=== PATIENT | male | born 1975 | race Caucasian/White ===

== ENCOUNTER → 2020-09-27 13:29 | Outpatient (CLI) | payer BC, SELFPAY ==
[2020-09-27 15:13] LABS: Absolute Lymphocyte Count 1.48 X10^3/uL (0.83-4.51); Basophil# 0.04 X10^3/uL; Basophil% 0.7 % (0-1); Eosinophil# 0.26 X10^3/uL; Eosinophils% 4.8 % (0-5); Hematocrit 46.9 % (40-54); Hemoglobin 16.4 g/dL (13.0-16.5); Lymphocyte # 1.48 X10^3/ul (4.0); Lymphocyte % 27.6 % (19-41); Mean Corpuscular Hgb 33.6 pg (27.0-32.0); Mean Corpuscular Volume 96.1 fL (80-94); Monocyte# 0.58 X10^3/uL; Monocyte% 10.8 % (0-10); NRBC Flagged by Analyzer 0 % (0-5); Neutrophil # 2.99 X10^3/uL (2.7-7.7); Neutrophil % 55.7 % (47-70); Platelet Count 293 K/mm3 (150-450); RBC Distribution Width CV 12.3 % (11.6-14.6); RBC Distribution Width SD 43.8 fl (35.1-43.9); Red Blood Count 4.88 M/mm3 (4.6-6.2); White Blood Count 5.4 K/mm3 (4.4-11.0)
[2020-09-27 16:00] LABS: ALB/GLOB Ratio 1.2 RATIO (0.9-2.4); AST(SGOT) 29 U/L (15-37); Alanine Aminotransfer ALT/SGPT 31 U/L (16-61); Albumin, Serum 4.4 g/dL (3.2-5.0); Alkaline Phosphatase 84 U/L (45-117); Anion Gap 8 (5-15); BUN 3 mg/dL (7-18); BUN/Creat Ratio 4.3 RATIO (10-20); Calcium,Total 9.1 mg/dL (8.5-10.1); Chloride 103 mmol/L (98-107); Cholesterol 171 mg/dL (200); EST Glomerular Filtration Rate 131 mL/min (>60); Est Glom Filt Rate - Afr Amer 158 mL/min (>60); Globulin 3.7 g/dL (2.2-4.2); Glucose 137 mg/dL (74-106); High Density Lipoprotein 49 mg/dL; Protein, Total 8.1 g/dL (6.4-8.2); Sodium Level 139 mmol/L (136-145); T4 Free Direct 0.99 ng/dL (0.76-1.46); Thyroid Stim Hormone (TSH) 0.91 uIU/mL (0.358-3.74); Triglycerides 169 mg/dL; Very Low Density Lipoprotein 34 mg/dL (5-40)
== END ==
PROVIDERS: PCP Family Medicine; Visit Provider Family Medicine
DX: E11.9 Type 2 diabetes mellitus without complications (principal); E78.5 Hyperlipidemia, unspecified; F41.8 Other specified anxiety disorders
CPT/HCPCS: 36415; 80053; 80061; 84439; 84443; 85025

== ENCOUNTER → 2023-03-04 | Outpatient (CLI) | payer OTHER, SELFPAY ==
[2023-03-04 12:48] LABS: Absolute Lymphocyte Count 1.47 X10^3/uL (0.83-4.51); Absolute Neutrophil Count 3.6 X10^3/uL (2.0-7.7); Basophil# 0.07 X10^3/uL; Basophil% 1.2 % (0-1); Eosinophil# 0.27 X10^3/uL; Eosinophils% 4.5 % (0-5); Hematocrit 45.6 % (40-54); Hemoglobin 15.6 g/dL (13.0-16.5); Lymphocyte # 1.47 X10^3/ul (0.83-4.51); Lymphocyte % 24.5 % (19-41); Mean Corp Hgb Conc 34.2 g/dL (32-36); Mean Corpuscular Hgb 34.1 pg (27.0-32.0); Mean Corpuscular Volume 99.6 fL (80-94); Mean Platelet Vol. 9.9 fl (6.2-12.0); Monocyte# 0.53 X10^3/uL; Monocyte% 8.8 % (0-10); NRBC Flagged by Analyzer 0 % (0-5); Neutrophil # 3.63 X10^3/uL (2.7-7.7); Neutrophil % 60.5 % (47-70); Platelet Count 298 K/mm3 (150-450); RBC Distribution Width CV 12.4 % (11.6-14.6); RBC Distribution Width SD 45.1 fl (35.1-43.9); Red Blood Count 4.58 M/mm3 (4.6-6.2)
[2023-03-04 13:20] LABS: AST(SGOT) 41 U/L (15-37); Alanine Aminotransfer ALT/SGPT 42 U/L (16-61); Albumin, Serum 3.6 g/dL (3.2-5.0); Alkaline Phosphatase 88 U/L (45-117); Anion Gap 4 (5-15); BUN 4 mg/dL (7-18); BUN/Creat Ratio 5.1 RATIO (10-20); Calcium,Total 8.7 mg/dL (8.5-10.1); Chloride 102 mmol/L (98-107); Cholesterol 145 mg/dL (200); Creatinine, Serum 0.78 mg/dL (0.70-1.30); EST Glomerular Filtration Rate 113 mL/min (>60); Est Glom Filt Rate - Afr Amer 136 mL/min (>60); Globulin 3.7 g/dL (2.2-4.2); Glucose 168 mg/dL (74-106); High Density Lipoprotein 33 mg/dL; PSA,Total - Annual Screen 0.52 ng/mL (0.00-4.00); Potassium 4.5 mmol/L (3.5-5.1); Protein, Total 7.3 g/dL (6.4-8.2); Sodium Level 136 mmol/L (136-145); Triglycerides 251 mg/dL; Very Low Density Lipoprotein 50 mg/dL (5-40)
== END | disposition home or self-care (01) ==
PROVIDERS: PCP Nurse Practitioner Family; Referring Provider Nurse Practitioner Family; Visit Provider Nurse Practitioner Family
DX: E11.9 Type 2 diabetes mellitus without complications (principal); I10 Essential (primary) hypertension; E78.5 Hyperlipidemia, unspecified
CPT/HCPCS: 36415; 80053; 80061; 82043; 82570; 84153; 85025; G0103

== ENCOUNTER → 2024-11-03 | Outpatient (CLI) | payer BC, SELFPAY ==
[2024-11-03 12:27] LABS: Absolute Lymphocyte Count 1.96 X10^3/uL (0.83-4.51); Absolute Neutrophil Count 5.1 X10^3/uL (2.0-7.7); Basophil# 0.07 X10^3/uL; Basophil% 0.9 % (0-1); Eosinophil# 0.21 X10^3/uL; Eosinophils% 2.6 % (0-5); Hematocrit 42.8 % (40-54); Lymphocyte # 1.96 X10^3/ul (0.83-4.51); Lymphocyte % 24.5 % (19-41); Mean Corpuscular Hgb 32.1 pg (27.0-32.0); Mean Corpuscular Volume 91.5 fL (80-94); Monocyte# 0.61 X10^3/uL; Monocyte% 7.6 % (0-10); NRBC Flagged by Analyzer 0 % (0-5); Neutrophil # 5.11 X10^3/uL (2.7-7.7); Platelet Count 278 K/mm3 (150-450); RBC Distribution Width CV 12.6 % (11.6-14.6); RBC Distribution Width SD 41.6 fl (35.1-43.9); Red Blood Count 4.68 M/mm3 (4.6-6.2)
[2024-11-03 13:50] LABS: Microalbumin,Random Urine 66.6 mg/L (NO RANGE EST.)
[2024-11-03 14:47] LABS: ALB/GLOB Ratio 1.5 RATIO (0.9-2.4); AST(SGOT) 52 U/L (<=37); Alanine Aminotransfer ALT/SGPT 53 U/L (<=46); Albumin, Serum 4.5 g/dL (3.5-5.0); Alkaline Phosphatase 102 U/L (40-129); Anion Gap 12 (5-15); BUN 7 mg/dL (4-19); BUN/Creat Ratio 9.8 RATIO (10-20); Calcium,Total 9.3 mg/dL (7.6-11.0); Carbon Dioxide 22.8 mmol/L (21.0-32.0); Chloride 101 mmol/L (98-108); Cholesterol 115 mg/dL (<=200); Creatinine, Serum 0.71 mg/dL (0.70-1.20); EST Glomerular Filtration Rate 113 (>60); Glucose 180 mg/dL (70-99); High Density Lipoprotein 43 mg/dL; Low Density Lipoprotein Calc. 37 mg/dL; PSA,Total - Annual Screen 0.31 ng/mL (0.02-4.00); Potassium 4.4 mmol/L (3.3-5.1); Protein, Total 7.5 g/dL (5.9-8.4); Sodium Level 136 mmol/L (133-145); Total Bilirubin 0.53 mg/dL (0.00-1.30); Triglycerides 173 mg/dL; Very Low Density Lipoprotein 35 mg/dL (5-40); cholesterol:hdl ratio screen 2.67
== END | disposition home or self-care (01) ==
LOC: BFHLAB 09:58
PROVIDERS: PCP Nurse Practitioner Family; Visit Provider Nurse Practitioner Family
DX: Z00.01 Encounter for general adult medical examination with abnormal findings (principal); E11.29 Type 2 diabetes mellitus with other diabetic kidney complication; R80.9 Proteinuria, unspecified; Z12.5 Encounter for screening for malignant neoplasm of prostate
CPT/HCPCS: 36415; 80053; 80061; 82043; 82570; 84153; 85025; G0103

== ENCOUNTER 2025-03-22 22:05 | Emergency (ER) | payer BC, SELFPAY ==
[2025-03-22 22:08] VITALS: BP 171/101; PULSE 74; RESP 16; TEMP 37.1; O2SAT 100; BMI 37.5
[2025-03-22 22:16] VITALS: O2SAT 97
--- NOTE | 2025-03-22 22:16 | EKG12_ITS ---
Test Reason : CP Blood Pressure : */* mmHG Vent. Rate : 69 BPM Atrial Rate : 69 BPM P-R Int : 158 ms QRS Dur : 98 ms QT Int : 416 ms P-R-T Axes : 46 -13 15 degrees QTcB Int : 445 ms Normal sinus rhythm Normal ECG Confirmed by TRAVIS GLASS ([id number]), magazine editor CHENG DURAN ([id number]) on 03/23/2025 1:49:34 PM Referred By: BB Confirmed By: TRAVIS GLASS
[2025-03-22] MEDS: 0.9% Normal Saline (1000mL) 1,000 ML 999 ML IV (22:30)
[2025-03-22 22:43] LABS: Hematocrit 41.0 % (40-54); Hemoglobin 14.6 g/dL (13.0-16.5); Immature Granulocytes Count 0.030 X10^3/uL (0.0-0.0); Mean Corp Hgb Conc 35.6 g/dL (32-36); Mean Corpuscular Volume 91.5 fL (80-94); Mean Platelet Vol. 9.4 fl (6.2-12.0); NRBC Flagged by Analyzer 0 % (0-5); Platelet Count 228 K/mm3 (150-450); RBC Distribution Width CV 11.8 % (11.6-14.6); RBC Distribution Width SD 39.5 fl (35.1-43.9); Red Blood Count 4.48 M/mm3 (4.6-6.2); White Blood Count 7.3 K/mm3 (4.4-11.0)
--- NOTE | 2025-03-22 22:43 | RAD_ITS ---
PROCEDURE: CHEST PA AND LATERAL 03/22/2025 REASON FOR EXAM: CHEST PAIN TECHNIQUE: CHEST PA AND LATERAL FINDINGS: The heart is normal in size. The lungs are clear. No acute osseous abnormalities. RAD/Chest PA and Lateral IMPRESSION: NO ACUTE FINDINGS. Reading Location: [id number]
--- OUTSIDE RECORDS SUMMARY | 2025-03-22 22:44 | XMS RPT_ITS | CCD ---
Author Organization [facility] Informat ion Partnership [facility] Care Team Providers Care Ebay Reseller Name Role Phone Georges TEMPERATURE REGULATOR PYROMETER-C, Sabrina Primary Care Provider Georges TEMPERATURE REGULATOR PYROMETEREulaC, Sabrina Attending Provider Sabrina Su Attending Unavailable Sabrina Su Primary Care Unavailable Results Test Name Value Interpretation Reference Range Facility Microalb:Creat Ratio,Random URon 01-13-2025 MALB:CREAT 60.0 mg/g CRE Normal [facility] Comment on above: Result Comment: AMENDED REPORT 01/13/25 1052 MALB:CREAT previously reported as: 600.0 mg/g CRE Performed By: #### L 500.4100, L500.4050, L501.9910, L502.0250, L100.0100 #### [facility] [place], [place], [id number] Absolute neutrophil countOrd ered By: Sabrina Su on 11-03-2024 Neutrophils (Bld) [#/Vol] 5.1 10*3/uL 2.0-7.7 [facility] Albumin DL <= 20 mg/L (U) [M ass/Vol]Ordered By: Sabrina Su on 11-03-2024 Urine Random Microalbumin 66.6 mg/L NO RANGE E [facility] Anion gap in Serum or Plasma Ordered By: Sabrina Su on 11-03-2024 Anion gap [Moles/Vol] 12 mmol/L 5-[address] [facility] BUN/creatinine ratioOrdered By: Sabrina Su on 11-03-2024 Urea nitrogen/Creatinine [Mass ratio] 9.8 mg/mg Low 10-20 [facility] Basophil percentageOrdered B y: Sabrina Su on 11-03-2024 Basophils/100 WBC (Bld) 0.9 % 0-1 [facility] Bilirubin, totalOrdered By: Sabrina Su on 11-03-2024 Bilirubin [Mass/Vol] 0.53 mg/dL 0.00-1.30 [facility] CBC W/Diff, Automatedon 04-0 Absolute Lymph 1.96 X10 3/uL Normal 0.83-4.51 [facility] Comment on above: Performed By: #### L 500.4100, L500.4050, L501.9910, L502.0250, L100.0100 #### [facility] [address] [place], [address] Absolute Neut 5.1 X10 3/uL Normal 2.0-7.7 [facility] Comment on above: Performed By: #### L 500.4100, L500.4050, L501.9910, L502.0250, L100.0100 #### [facility] [address] [place], [address] Basophils/100 WBC (Bld) 0.9 % Normal 0-1 [facility] Comment on above: Performed By: #### L 500.4100, L500.4050, L501.9910, L502.0250, L100.0100 #### [facility] [address] [place], [address] Eosinophils/100 WBC (Bld) 2.6 % Normal 0-5 [facility] Comment on above: Performed By: #### L 500.4100, L500.4050, L501.9910, L502.0250, L100.0100 #### [facility] [address] [place], [address] Erythrocyte distribution width (RBC) [Ratio] 12.6 % Normal 11.6-14.6 [facility] Comment on above: Performed By: #### L 500.4100, L500.4050, L501.9910, L502.0250, L100.0100 #### [facility] [address] [place], [address] Hematocrit (Bld) [Volume fraction] 42.8 % Normal 40-54 [facility] Comment on above: Performed By: #### L 500.4100, L500.4050, L501.9910, L502.0250, L100.0100 #### [facility] [address] [place], [address] Hemoglobin (Bld) [Mass/Vol] 15.0 g/dL Normal 13.0-16.5 [facility] Comment on above: Performed By: #### L 500.4100, L500.4050, L501.9910, L502.0250, L100.0100 #### [facility] [address] [place], [address] IG% 0.400 Normal 0.0-0.9 [facility] Comment on above: Result Comment: IG% - Immature Granulocytes (promyelocytes, myelocytes and metamyelocytes) > 1% indicates that a LEFT SHIFT is Present. Performed By: #### L 500.4100, L500.4050, L501.9910, L502.0250, L100.0100 #### [facility] [address] [place], [address] Lymphocytes/100 WBC (Bld) 24.5 % Normal 19-41 [facility] Comment on above: Performed By: #### L 500.4100, L500.4050, L501.9910, L502.0250, L100.0100 #### [facility] [address] [place], [address] MCH (RBC) [Entitic mass] 32.1 pg High 27.0-32.0 [facility] Comment on above: Performed By: #### L 500.4100, L500.4050, L501.9910, L502.0250, L100.0100 #### [facility] [address] [place] [place], [address] MCHC (RBC) [Mass/Vol] 35.0 g/dL Normal 32-[address] [facility] Comment on above: Performed By: #### L 500.4100, L500.4050, L501.9910, L502.0250, L100.0100 #### [facility] [address] [place], [address] MCV (RBC) [Entitic vol] 91.5 fL Normal 80-94 [facility] Comment on above: Performed By: #### L 500.4100, L500.4050, L501.9910, L502.0250, L100.0100 #### [facility] [address] [place], [address] Monocytes/100 WBC (Bld) 7.6 % Normal 0-10 [facility] Comment on above: Performed By: #### L 500.4100, L500.4050, L501.9910, L502.0250, L100.0100 #### [facility] [address] [place], [address] Neutrophils/100 WBC (Bld) 64.0 % Normal 47-70 [facility] Comment on above: Performed By: #### L 500.4100, L500.4050, L501.9910, L502.0250, L100.0100 #### [facility] [address] [place], [address] Nucleated RBC (Bld) [#/Vol] 0 10*3/uL Normal 0-5 [facility] Comment on above: Performed By: #### L 500.4100, L500.4050, L501.9910, L502.0250, L100.0100 #### [facility] [address] [place], [address] Platelet mean volume (Bld) [Entitic vol] 10.0 fL Normal 6.2-12.0 [facility] Comment on above: Performed By: #### L 500.4100, L500.4050, L501.9910, L502.0250, L100.0100 #### [facility] [address] [place], [address] Platelets (Bld) [#/Vol] 278 10*3/uL Normal 150-450 [facility] Comment on above: Performed By: #### L 500.4100, L500.4050, L501.9910, L502.0250, L100.0100 #### [facility] [address] [place], [address] RBC (Bld) [#/Vol] 4.68 10*6/uL Normal 4.6-6.2 [facility] Comment on above: Performed By: #### L 500.4100, L500.4050, L501.9910, L502.0250, L100.0100 #### [facility] [address] [place], [address] RDW SD 41.6 fl Normal 35.1-43.9 [facility] Comment on above: Performed By: #### L 500.4100, L500.4050, L501.9910, L502.0250, L100.0100 #### [facility] [address] [place], [address] WBC (Bld) [#/Vol] 8.0 10*3/uL Normal 4.4-11.0 [facility] Comment on above: Performed By: #### L 500.4100, L500.4050, L501.9910, L502.0250, L100.0100 #### [facility] [address] [place], [address] Calculated very low density lipoprotein (VLDL) cholesterol measurementOrdered By: Sabrina Su on 11-03-2024 VLDL Cholesterol 35 mg/dL 5-40 [facility] Carbon dioxide, total [Moles /volume] in Central venous bloodOrdered By: Sabrina Su on 11-03-2024 CO2 [Moles/Vol] 22.8 mmol/L 21.0-32.0 [facility] Chloride assayOrdered By: Ra maria de jesus Su on 11-03-2024 Chloride [Moles/Vol] 101 mmol/L 98-108 [facility] Comprehensive Metabolic Prof ilon 11-03-2024 Albumin [Mass/Vol] 4.5 g/dL Normal 3.5-5.0 [facility] Comment on above: Performed By: #### L 500.4100, L500.4050, L501.9910, L502.0250, L100.0100 #### [facility] [address] [facility] [place], [address] Albumin/Globulin [Mass ratio] 1.5 {ratio} Normal 0.9-2.4 [facility] Comment on above: Performed By: #### L 500.4100, L500.4050, L501.9910, L502.0250, L100.0100 #### [facility] [address] [place], [address] ALK PHOS 102 U/L Normal 40-129 [facility] Comment on above: Performed By: #### L 500.4100, L500.4050, L501.9910, L502.0250, L100.0100 #### [facility] [address] [place], [address] ALT [Catalytic activity/Vol] 53 U/L High <=46 [facility] Comment on above: Performed By: #### L 500.4100, L500.4050, L501.9910, L502.0250, L100.0100 #### [facility] [address] [place], [address] AST [Catalytic activity/Vol] 52 U/L High <=37 [facility] Comment on above: Performed By: #### L 500.4100, L500.4050, L501.9910, L502.0250, L100.0100 #### [facility] [address] [place], [address] Bilirubin [Mass/Vol] 0.53 mg/dL Normal 0.00-1.30 [facility] Comment on above: Performed By: #### L 500.4100, L500.4050, L501.9910, L502.0250, L100.0100 #### [facility] [address] [place], [address] BUN/CRE 9.8 RATIO Low 10-20 [facility] Comment on above: Performed By: #### L 500.4100, L500.4050, L501.9910, L502.0250, L100.0100 #### [facility] [address] [place], [address] Calcium [Mass/Vol] 9.3 mg/dL Normal 7.6-11.0 [facility] Comment on above: Performed By: #### L 500.4100, L500.4050, L501.9910, L502.0250, L100.0100 #### [facility] [address] [place], [address] Chloride [Moles/Vol] 101 mmol/L Normal 98-108 [facility] Comment on above: Performed By: #### L 500.4100, L500.4050, L501.9910, L502.0250, L100.0100 #### [facility] [address] [place], [address] CO2 [Moles/Vol] 22.8 mmol/L Normal 21.0-32.0 [facility] Comment on above: Performed By: #### L 500.4100, L500.4050, L501.9910, L502.0250, L100.0100 #### [facility] [address] [place], [address] Creatinine [Mass/Vol] 0.71 mg/dL Normal 0.70-1.[address] [facility] Comment on above: Performed By: #### L 500.4100, L500.4050, L501.9910, L502.0250, L100.0100 #### [facility] [address] [place], [address] GAP 12 Normal 5-15 [facility] Comment on above: Performed By: #### L 500.4100, L500.4050, L501.9910, L502.0250, L100.0100 #### [facility] [address] [place], [address] GFR/1.73 sq M.predicted among non-blacks MDRD (S/P/Bld) [Vol rate/Area] 113 mL/min/{1.73_m2} Normal >60 [facility] Comment on above: Result Comment: mL/m in/1.73m2 CKD-EPI Creatinine Equation (2020) Performed By: #### L 500.4100, L500.4050, L501.9910, L502.0250, L100.0100 #### [facility] [address] [place], [address] Globulin (S) [Mass/Vol] 3.0 g/dL Normal 2.2-4.2 [facility] Comment on above: Performed By: #### L 500.4100, L500.4050, L501.9910, L502.0250, L100.0100 #### [facility] [address] [place], [address] Glucose [Mass/Vol] 180 mg/dL High 70-99 [facility] Comment on above: Performed By: #### L 500.4100, L500.4050, L501.9910, L502.0250, L100.0100 #### [facility] [address] [place], [address] Potassium [Moles/Vol] 4.4 mmol/L Normal 3.3-5.[address] [facility] Comment on above: Performed By: #### L 500.4100, L500.4050, L501.9910, L502.0250, L100.0100 #### [facility] [address] [place], [address] Sodium [Moles/Vol] 136 mmol/L Normal 133-145 [facility] Comment on above: Performed By: #### L 500.4100, L500.4050, L501.9910, L502.0250, L100.0100 #### [facility] [address] [place], [address] T PROT 7.5 g/dL Normal 5.9-8.4 [facility] Comment on above: Performed By: #### L 500.4100, L500.4050, L501.9910, L502.0250, L100.0100 #### [facility] [address] [place], [address] Urea nitrogen [Mass/Vol] 7 mg/dL Normal 4-19 [facility] Comment on above: Performed By: #### L 500.4100, L500.4050, L501.9910, L502.0250, L100.0100 #### [facility] [address] [place], [address] Creatinine Unsp time (U) [Ma ss/Vol]Ordered By: Sabrina Su on 11-03-2024 Creatinine (U) [Mass/Vol] 111.00 mg/dL 39.00-25 9.00 [facility] Eosinophil percentageOrdered By: Baldwin Georges on 11-03-2024 Eosinophils/100 WBC (Bld) 2.6 % 0-5 [facility] Erythrocyte distribution wid th (RBC) [Ratio]Ordered By: Sabrinadeanne Su on 11-03-2024 Erythrocyte distribution width (RBC) [Entitic vol] 41.6 fL 35.1-43.9 [facility] Erythrocyte distribution wid th ratioOrdered By: Baldwin Georges on 11-03-2024 Erythrocyte distribution width (RBC) [Ratio] 12.6 % 11.6-14.6 [facility] GFR/1.73 sq M.predicted lynn g non-blacks MDRD (S/P/Bld) [Vol rate/Area]Ordered By: Sabrinadeanne Su on 11-03-2024 Estimated GFR (MDRD) Non-Af Amer 113 >60 [facility] Comment on above: mL/min/1.73m2 CKD-EP I Creatinine Equation (2020) Hematocrit Auto (Bld) [Volum e fraction]Ordered By: Sabrina Su on 11-03-2024 Hematocrit (Bld) [Volume fraction] 42.8 % 40-54 [facility] Hemoglobin measurementOrdere d By: Sabrina Su on 11-03-2024 Hemoglobin (Bld) [Mass/Vol] 15.0 g/dL 13.0-16.5 [facility] Immature granulocytes/100 WB C Auto (Bld)Ordered By: Sabrina Su on 11-03-2024 Immature granulocytes/100 WBC (Bld) 0.400 % 0.0-0.9 [facility] Comment on above: IG% - Immature Granu locytes (promyelocytes, myelocytes and metamyelocytes) > 1% indicates that a LEFT SHIFT is Present. LDL calc ser/plasOrdered By: Sabrina Su on 11-03-2024 LDL Cholesterol, Calculated 37 mg/dL [facility] Comment on above: Goqqjwwvbi=869-750 m g/dL & Higher Zdkg=801 mg/dL or greater Laboratory - Chemistry and C hemistry - challengeOrdered By: Sabrina Su on 11-03-2024 AST [Catalytic activity/Vol] 52 U/L High <38 [facility] Lipid Profileon 11-03-2024 CHOL:HDL 2.67 Normal [facility] Comment on above: Performed By: #### L 500.4100, L500.4050, L501.9910, L502.0250, L100.0100 #### [facility] [address] [place], [address] Cholesterol [Mass/Vol] 115 mg/dL Normal <=200 [facility] Comment on above: Result Comment: Chol esterol level, Desirable <200 mg/dL Borderline high cholesterol 200-239 mg/dL High cholesterol >=240 mg/dL Recommendations of the NCEP Adult Treatment Panel for the following risk-cutoff thresholds for the [place] population. Performed By: #### L 500.4100, L500.4050, L501.9910, L502.0250, L100.0100 #### [facility] [address] [place], [address] Cholesterol in HDL [Mass/Vol] 43 mg/dL Normal [facility] Comment on above: Result Comment: [place]ette onal Cholesterol Education Program (NCEP) guidelines: <40 mg/dL: Low HDL-cholesterol (major risk factor for CHD) >= 60 mg/dL: High HDL-cholesterol (negative risk factor for CHD) HDL-cholesterol is affected by a number of factors, e.g. smoking, exercise, hormones, sex and age. Performed By: #### L 500.4100, L500.4050, L501.9910, L502.0250, L100.0100 #### [facility] [address] [place], [address] Cholesterol in LDL [Mass/Vol] 37 mg/dL Normal [facility] Comment on above: Result Comment: Bord gowqri=480-397 mg/dL Higher Gkvn=681 mg/dL or greater Performed By: #### L 500.4100, L500.4050, L501.9910, L502.0250, L100.0100 #### [facility] [address] [place], [address] Cholesterol in VLDL [Mass/Vol] 35 mg/dL Normal 5-40 [facility] Comment on above: Performed By: #### L 500.4100, L500.4050, L501.9910, L502.0250, L100.0100 #### [facility] [address] [place], [address] Triglyceride [Mass/Vol] 173 mg/dL Normal [facility] Comment on above: Result Comment: The drugs N-Acetylcysteine and Metamizole may falsely depress this assay. Normal range: <150 mg/dL Borderline High: 150-199 mg/dL High: 200-499 mg/dL Very High: >500 mg/dL Performed By: #### L 500.4100, L500.4050, L501.9910, L502.0250, L100.0100 #### [facility] [address] [place], [place], [address] Lymphocytes Auto (Unsp spec) [#/Vol]Ordered By: Sabrina Su on 11-03-2024 Lymphocytes (Bld) [#/Vol] 1.96 10*3/uL 0.83-4.5 1 [facility] Lymphocytes/100 WBC Auto (Un sp spec)Ordered By: Sabrina Su on 11-03-2024 Lymphocytes/100 WBC (Bld) 24.5 % 19-41 [facility] MCV (mean corpuscular volume ) determinationOrdered By: Sabrina Su on 11-03-2024 MCV (RBC) [Entitic vol] 91.5 fL 80-94 [facility] Mean corpuscular hemoglobin (MCH) determinationOrdered By: Sabrina Su on 11-03-2024 MCH (RBC) [Entitic mass] 32.1 pg High 27.0-32.0 [facility] Mean corpuscular hemoglobin concentration (MCHC) determinationOrdered By: Sabrina Su on 11-03-2024 MCHC (RBC) [Mass/Vol] 35.0 g/dL 32-[address] [facility] Mean platelet volume determi nationOrdered By: Sabrina Su on 11-03-2024 Platelet mean volume (Bld) [Entitic vol] 10.0 fL 6.2-12.0 [facility] Microalbumin/creat ratio urO rdered By: Sabrina Su on 11-03-2024 Urine Microalbumin/Creatinine Ratio 600.0 mg/g CRE [facility] Monocyte percentageOrdered B y: Sabrina Tagar on 11-03-2024 Monocytes/100 WBC (Bld) 7.6 % 0-10 [facility] Neutrophil percentageOrdered By: Sabrina Georges on 11-03-2024 Neutrophils/100 WBC (Bld) 64.0 % 47-70 [facility] Nucleated red blood cell per centageOrdered By: Sabrina Georges on 11-03-2024 Nucleated RBC/100 WBC (Bld) [Ratio] 0 % 0-5 [facility] PSA, total screeningOrdered By: Sabrina Georges on 11-03-2024 Prostate Specific Antigen Screen 0.31 ng/mL 0.02-4.00 [facility] Comment on above: This test was perfor med using the [employer] tPSA method. Measured values of a patient sample can vary depending on the testing procedure used. PSA values determined on patient samples by different testing procedures cannot be used interchangeably. If there is a change in PSA assays while monitoring therapy, sequential testing should be performed to confirm baseline values. PSA,Total - Annual Screenon 11-03-2024 PSA,TOT SCREEN 0.31 ng/mL Normal 0.02-4.00 [facility] Comment on above: Result Comment: This test was performed using the [employer] tPSA method. Measured values of a patient??sample can vary depending on the testing procedure used. PSA values determined on patient samples by different testing procedures cannot be used interchangeably. If there is a change in PSA assays while monitoring therapy, sequential testing should be performed to confirm baseline values. Performed By: #### L 500.4100, L500.4050, L501.9910, L502.0250, L100.0100 #### [facility] [address] [place], [address] Platelet countOrdered By: Ra maria de jesus Su on 11-03-2024 Platelets (Bld) [#/Vol] 278 10*3/uL 150-450 [facility] Potassium (Unsp spec) [Mass/ Vol]Ordered By: Sabrina Su on 11-03-2024 Potassium [Moles/Vol] 4.4 mmol/L 3.3-5.[address] [facility] RBC Auto (Bld) [#/Vol]Ordere d By: Sabrina Su on 11-03-2024 RBC (Bld) [#/Vol] 4.68 10*6/uL 4.6-6.2 [facility] Screening total cholesterol/ high density lipoprotein (HDL) cholesterol ratioOrdered By: Sabrina Su on 11-03-2024 Cholesterol.total/Cholest les in HDL [Mass ratio] 2.67 {ratio} [facility] Serum creatinine measurement (mass/volume)Ordered By: Sabrina Su on 11-03-2024 Creatinine [Mass/Vol] 0.71 mg/dL 0.70-1.[address] [facility] Serum globulin measurementOr dered By: Sabrina Su on 11-03-2024 Globulin (S) [Mass/Vol] 3.0 g/dL 2.2-4.2 [facility] Serum glucose measurement (m ass/volume)Ordered By: Sabrina Su on 11-03-2024 Glucose [Mass/Vol] 180 mg/dL High 70-99 [facility] Serum or plasma alanine barker otransferase (ALT) measurementOrdered By: Sabrina Su on 11-03-2024 ALT [Catalytic activity/Vol] 53 U/L High <47 [facility] Serum or plasma albumin maryann urement (mass/volume)Ordered By: Sabrina Su on 11-03-2024 Albumin [Mass/Vol] 4.5 g/dL 3.5-5.0 [facility] Serum or plasma albumin/glob ulin mass ratioOrdered By: Sabrina Su on 11-03-2024 Albumin/Globulin [Mass ratio] 1.5 {ratio} 0.9-2.4 [facility] Serum or plasma alkaline pelon sphatase measurementOrdered By: Sabrina Su 11-03-2024 ALP [Catalytic activity/Vol] 102 U/L 40-129 [facility] Serum or plasma calcium maryann urement (mass/volume)Ordered By: Sabrina Su on 11-03-2024 Calcium [Mass/Vol] 9.3 mg/dL 7.6-11.0 [facility] Serum or plasma cholesterol in HDL measurement (mass/volume)Ordered By: Sabrina Su on 11-03-2024 Cholesterol in HDL [Mass/Vol] 43 mg/dL >40 [facility] Comment on above: National Cholesterol Education Program (NCEP) guidelines:<40 mg/dL: Low HDL-cholesterol (major risk factor for CHD)>= 60 mg/dL: High HDL-cholesterol (negative risk factor for CHD)HDL-cholesterol is affected by a number of factors, e.g. smoking, exercise, hormones, sex and age. Serum or plasma cholesterol measurement (mass/volume)Ordered By: Sabrina Su on 11-03-2024 Cholesterol [Mass/Vol] 115 mg/dL <201 [facility] Comment on above: Cholesterol level, D esirable <200 mg/dLBorderline high cholesterol 200-239 mg/dLHigh cholesterol >=240 mg/dLRecommendations of the NCEP Adult Treatment Panel for the following risk-cutoff thresholds for the [place] population. Serum or plasma urea nitroge n measurement (mass/volume)Ordered By: Sabrina Su on 11-03-2024 Urea nitrogen [Mass/Vol] 7 mg/dL 4-19 [facility] Sodium levelOrdered By: Macrina Su on 11-03-2024 Sodium [Moles/Vol] 136 mmol/L 133-145 [facility] Total proteinOrdered By: Rhina Su on 11-03-2024 Protein [Mass/Vol] 7.5 g/dL 5.9-8.4 [facility] Triglycerides measurementOrd ered By: Sabrina Su on 11-03-2024 Triglyceride [Mass/Vol] 173 mg/dL <199 [facility] Comment on above: The drugs N-Acetylcy steine and Metamizole may falsely depress this assay. Normal range: <150 mg/dLBorderline High: 150-199 mg/dLHigh: 200-499 mg/dLVery High: >500 mg/dL White blood cell (WBC) count Ordered By: Sabrina Su on 11-03-2024 WBC (Bld) [#/Vol] 8.0 10*3/uL 4.4-11.0 [facility] Absolute lymphocyte countOrd ered By: Sabrina Su on 03-04-2023 Lymphocytes Auto (Unsp spec) [#/Vol] 1.47 10*3/uL 0.83-4.51 [facility] Basophil percentageOrdered B y: Sabrina Su on 03-04-2023 Basophils/100 WBC (Bld) 1.2 % 0-1 [facility] Bilirubin [Mass/Vol] 0.60 mg/dL 0.20-1.00 [facility] Comment on above: For patients on eltr ombopag therapy, use of Dimension [place] TBIL is not recommended. Chloride [Moles/Vol] 102 mmol/L 98-107 [facility] Cholesterol [Mass/Vol] 145 mg/dL <200 [facility] Comment on above: <200 mg/dL Desirable 200-240 mg/dL Borderline >240 mg/dL High Risk Eosinophils/100 WBC (Bld) 4.5 % 0-5 [facility] Glucose [Mass/Vol] 168 mg/dL 74-106 [facility] Comment on above: Fasting Glucose resu lt greater than or equal to 126 mg/dL suggests DIABETES MELLITUS per A.D.A. criteria. Neutrophils (Bld) [#/Vol] 3.6 10*3/uL 2.0-7.7 [facility] Neutrophils/100 WBC (Bld) 60.5 % 47-70 [facility] Potassium [Moles/Vol] 4.5 mmol/L 3.5-5.[address] [facility] Protein [Mass/Vol] 7.3 g/dL 6.4-8.2 [facility] Sodium [Moles/Vol] 136 mmol/L 136-145 [facility] Triglyceride [Mass/Vol] 251 mg/dL <199 [facility] Comment on above: The drugs N-Acetylcy steine and Metamizole may falsely depress this assay.Serum Triglycerides Reference Interval Normal <150 mg/dL Borderline high 150 - 199 mg/dL High 200 - 499 mg/dL Very High > or = 500 mg/dL WBC (Bld) [#/Vol] 6.0 10*3/uL 4.4-11.0 [facility] Blood erythrocytes count (nu mber/volume)Ordered By: Sabrina Su on 03-04-2023 RBC (Bld) [#/Vol] 4.58 10*6/uL 4.6-6.2 [facility] Blood hemoglobin measurement (mass/volume)Ordered By: Sabrina Su on 03-04-2023 Hemoglobin (Bld) [Mass/Vol] 15.6 g/dL 13.0-16.5 [facility] Blood lymphocytes/100 leukoc ytesOrdered By: Sabrinadeanne Su on 03-04-2023 Lymphocytes/100 WBC (Bld) 24.5 % 19-41 [facility] Blood monocytes/100 leukocyt esOrdered By: Sabrinadeanne Su on 03-04-2023 Monocytes/100 WBC (Bld) 8.8 % 0-10 [facility] Blood platelet mean volumeOr dered By: Sabrina Su on 03-04-2023 Platelet mean volume (Bld) [Entitic vol] 9.9 fL 6.2-12.0 [facility] Determination of erythrocyte mean corpuscular volume (MCV)Ordered By: Sabrinadeanne Su on 03-04-2023 MCV (RBC) [Entitic vol] 99.6 fL 80-94 [facility] Hematocrit Auto (Bld) [Volum e fraction]Ordered By: Sabrinadeanne Su on 03-04-2023 Hematocrit (Bld) [Volume fraction] 45.6 % 40-54 [facility] - Chemistry and C hemistry - challengeOrdered By: Sabrina Su on 03-04-2023 ALP [Catalytic activity/Vol] 88 U/L 45-117 [facility] ALT [Catalytic activity/Vol] 42 U/L 16-61 [facility] CO2 [Moles/Vol] 30.0 mmol/L 21.0-32.0 [facility] Globulin (S) [Mass/Vol] 3.7 g/dL 2.2-4.2 [facility] Urea nitrogen/Creatinine [Mass ratio] 5.1 mg/mg 10-20 [facility] - Hematology and Cell countsOrdered By: Sabrina Su on 03-04-2023 Erythrocyte distribution width (RBC) [Entitic vol] 45.1 fL 35.1-43.9 [facility] Erythrocyte distribution width (RBC) [Ratio] 12.4 % 11.6-14.6 [facility] Immature granulocytes/100 WBC (Bld) 0.500 % 0.0-0.9 [facility] Comment on above: IG% - Immature Granu locytes (promyelocytes, myelocytes and metamyelocytes) > 1% indicates that a LEFT SHIFT is Present. MCH (RBC) [Entitic mass] 34.1 pg 27.0-32.0 [facility] Nucleated RBC/100 WBC (Bld) [Ratio] 0 % 0-5 [facility] MCHC Auto (RBC) [Mass/Vol]Or dered By: Sabrina Su on 03-04-2023 MCHC (RBC) [Mass/Vol] 34.2 g/dL 32-[address] [facility] No Panel InformationOrdered By: Sabrina Su on 03-04-2023 Estimated GFR (MDRD) Amer 136 mL/min >60 [facility] Comment on above: GFR Calc Estimated GFR (MDRD) Non-Af Amer 113 mL/min >60 [facility] Comment on above: Non- GFR Calc Prostate Specific Antigen Screen 0.52 ng/mL 0.00-4.00 [facility] Comment on above: This test was perfor med using the TPSA assay method [facility]. Values obtained with differentassay methods cannot be used interchangably.When changing PSA assays in the course of monitoring apatient, additional sequential testing should be carriedout to confirm baseline values. Urine Microalbumin/Creatinine Ratio 48.0 mg/g CRE <30 [facility] Platelets bldOrdered By: Rhina Su on 03-04-2023 Platelets (Bld) [#/Vol] 298 10*3/uL 150-450 [facility] Serum or plasma albumin maryann urement (mass/volume)Ordered By: Sabrina Su on 03-04-2023 Albumin [Mass/Vol] 3.6 g/dL 3.2-5.0 [facility] Serum or plasma albumin/glob ulin mass ratioOrdered By: Sabrina Su on 03-04-2023 Albumin/Globulin [Mass ratio] 1.0 {ratio} 0.9-2.4 [facility] Serum or plasma calcium maryann urement (mass/volume)Ordered By: Sabrina Su on 03-04-2023 Calcium [Mass/Vol] 8.7 mg/dL 8.5-10.1 [facility] Serum or plasma cholesterol in HDL measurement (mass/volume)Ordered By: Sabrina Su on 03-04-2023 Cholesterol in HDL [Mass/Vol] 33 mg/dL >40 [facility] Comment on above: The drugs N-Acetylcy steine and Metamizole may falsely depress this assay. Reference Range HDL <40 mg/dL Low HDL Cholesterol HDL >or= 60 mg/dL High HDL Cholesterol Serum or plasma cholesterol in VLDL measurement (mass/volume)Ordered By: Sabrina Su on 03-04-2023 Cholesterol in VLDL [Mass/Vol] 50 mg/dL 5-40 [facility] Serum or plasma creatinine m easurement (mass/volume)Ordered By: Sabrina Su on 03-04-2023 Creatinine [Mass/Vol] 0.78 mg/dL 0.70-1.[address] [facility] Comment on above: The validity of the calculated GFR & GFRAA in patients over 70 years has not been determined. Clinical correlation is essential. Serum or plasma low density lipoprotein (LDL) cholesterol measurement (mass/volume)Ordered By: Sabrina uS on 03-04-2023 Cholesterol in LDL [Mass/Vol] 62 mg/dL 0-130 [facility] Serum or plasma urea nitroge n measurement (mass/volume)Ordered By: Sabrina Su on 03-04-2023 Urea nitrogen [Mass/Vol] 4 mg/dL 7-18 [facility] Thin prep Papanicolaou smear with manual screeningOrdered By: Sabrina Su on 03-04-2023 Thin prep Papanicolaou smear with manual screening 41 U/L 15-37 [facility] Thin prep Papanicolaou smear with manual screening 4 5-15 [facility] Thin prep Papanicolaou smear with manual screening 17.0 mg/L NO RANGE EST. [facility] Urine creatinine measurement (mass/volume)Ordered By: Sabrina Su on 03-04-2023 Creatinine (U) [Mass/Vol] 35.40 mg/dL NO RANGE EST. [facility] 06-04-2019 Vit. D 25-Hydroxy 38 ng/mL Normal [facility] ([place]) Comment on above: Result Comment: Inte rpretive Values Based on Total 25(OH)D: Severe Deficiency <20 ng/mL Mild to Moderate Deficiency 20-30 ng/mL Optimum Levels 30-100 ng/mL Toxicity Possible >100 ng/mL Performed By: #### C BC, ADIFF, ANEU, A1C, GFR, TSH, CMP #### [address] [address] .Auto Diffon 06-03-2019 Ammonia (P) [Mass/Vol] 0.60 10 3/mcL Normal 0.09-1.40 [facility] ([place]) Comment on above: Performed By: #### C BC, ADIFF, ANEU, A1C, GFR, TSH, CMP #### [address] [address] Basophils (Bld) [#/Vol] 0.00 10 3/mcL Normal 0.00-0.27 [facility] ([place]) Comment on above: Performed By: #### C BC, ADIFF, ANEU, A1C, GFR, TSH, CMP #### [address] [address] Basophils/100 WBC (Bld) 0.7 % Normal 0.0-2.5 [facility] ([place]) Comment on above: Performed By: #### C BC, ADIFF, ANEU, A1C, GFR, TSH, CMP #### [address] [address] Eosinophils (Bld) [#/Vol] 0.10 10 3/mcL Normal 0.00-0. 65 [facility] ([place] Comment on above: Performed By: #### C BC, ADIFF, ANEU, A1C, GFR, TSH, CMP #### [address] [address] Eosinophils/100 WBC (Bld) 1.7 % Normal 0.0-6.0 [facility] ([place] Comment on above: Performed By: #### C BC, ADIFF, ANEU, A1C, GFR, TSH, CMP #### [address] [address] Lymphocytes (Bld) [#/Vol] 1.60 10 3/mcL Normal 0.90-4. 32 [facility] ([place]) Comment on above: Performed By: #### C BC, ADIFF, ANEU, A1C, GFR, TSH, CMP #### [address] [address] Lymphocytes/100 WBC (Bld) 22.3 % Normal 20.0-40.0 [facility] ([place]) Comment on above: Performed By: #### C BC, ADIFF, ANEU, A1C, GFR, TSH, CMP #### [address] [address] Monocytes/100 WBC (Bld) 8.4 % Normal 2.0-13.0 [facility] ([place]) Comment on above: Performed By: #### C BC, ADIFF, ANEU, A1C, GFR, TSH, CMP #### [address] [address] Neutrophils/100 WBC (Bld) 66.9 % Normal 50.0-75.0 [facility] ([place]) Comment on above: Performed By: #### C BC, ADIFF, ANEU, A1C, GFR, TSH, CMP #### [address] [address] .GFRon 06-03-2019 GFR Non- >60 Normal [facility] ([place]) Comment on above: Result Comment: GFR Population mean for , Non- Americans Ages 20-29 = 116 mL/min/1.73 sq.m. Ages 30-39 = 107 mL/min/1.73 sq.m. Ages 40-49 = 99 mL/min/1.73 sq.m. Ages 50-59 = 93 mL/min/1.73 sq.m. Ages 60-69 = 85 mL/min/1.73 sq.m. Ages 70+ = 75 mL/min/1.73 sq.m. Chronic Kidney Disease: Less than 60 mL/min/1.73 square meters End Stage Renal Disease: Less than 15 mL/min/1.73 square meters Performed By: #### C BC, ADIFF, ANEU, A1C, GFR, TSH, CMP #### [address] [address] GFR >60 Normal [facility] ([place]) Comment on above: Result Comment: GFR Population mean for , Non- Americans Ages 20-29 = 116 mL/min/1.73 sq.m. Ages 30-39 = 107 mL/min/1.73 sq.m. Ages 40-49 = 99 mL/min/1.73 sq.m. Ages 50-59 = 93 mL/min/1.73 sq.m. Ages 60-69 = 85 mL/min/1.73 sq.m. Ages 70+ = 75 mL/min/1.73 sq.m. Chronic Kidney Disease: Less than 60 mL/min/1.73 square meters End Stage Renal Disease: Less than 15 mL/min/1.73 square meters Performed By: #### C BC, ADIFF, ANEU, A1C, GFR, TSH, CMP #### [place] [address] .NEUABSon 06-03-2019 Neutrophils (Bld) [#/Vol] 4.80 10 3/mcL Normal 2.25-8. 10 [facility] ([place] Comment on above: Performed By: #### C BC, ADIFF, ANEU, A1C, GFR, TSH, CMP #### [place] [address] A1Con 06-03-2019 HbA1c (Bld) [Mass fraction] 6.3 % High 4.0-6.0 [facility] ([place]) Comment on above: Performed By: #### C BC, ADIFF, ANEU, A1C, GFR, TSH, CMP #### [place] [address] CBCon 06-03-2019 Erythrocyte distribution width (RBC) [Ratio] 14.2 % Normal 11.5-15.5 [facility] ([place]) Comment on above: Performed By: #### C BC, ADIFF, ANEU, A1C, GFR, TSH, CMP #### [place] [address] Hematocrit (Bld) [Volume fraction] 48.9 % Normal 40.0-52.0 [facility] ([place] Comment on above: Performed By: #### C BC, ADIFF, ANEU, A1C, GFR, TSH, CMP #### [place] [id number] Hemoglobin (Bld) [Mass/Vol] 16.6 G/dL Normal 13.0-17.5 [facility] ([place] Comment on above: Performed By: #### C BC, ADIFF, ANEU, A1C, GFR, TSH, CMP #### [place] [id number] MCH (RBC) [Entitic mass] 33.0 pg Normal 27.0-33.0 [facility] ([place]) Comment on above: Performed By: #### C BC, ADIFF, ANEU, A1C, GFR, TSH, CMP #### [place] [id number] MCHC (RBC) [Mass/Vol] 34.0 G/dL Normal 32.0-36.0 [facility] ([place]) Comment on above: Performed By: #### C BC, ADIFF, ANEU, A1C, GFR, TSH, CMP #### [place] [id number] MCV (RBC) [Entitic vol] 97.1 fL Normal 81.0-100.0 [facility] ([place]) Comment on above: Performed By: #### C BC, ADIFF, ANEU, A1C, GFR, TSH, CMP #### [place] [id number] Platelet mean volume (Bld) [Entitic vol] 8.4 fL Normal 6.4-10.5 [facility] ([place] Comment on above: Performed By: #### C BC, ADIFF, ANEU, A1C, GFR, TSH, CMP #### [place] [id number] Platelets (Bld) [#/Vol] 315 10 3/mcL Normal 150-450 [facility] ([place] Comment on above: Performed By: #### C BC, ADIFF, ANEU, A1C, GFR, TSH, CMP #### [address] [address] RBC (Bld) [#/Vol] 5.04 10 6/mcL Normal 4.50-6.00 [facility] ([place]) Comment on above: Performed By: #### C BC, ADIFF, ANEU, A1C, GFR, TSH, CMP #### [place] [id number] WBC (Bld) [#/Vol] 7.10 10 3/mcL Normal 4.50-10.80 [facility] ([place] Comment on above: Performed By: #### C BC, ADIFF, ANEU, A1C, GFR, TSH, CMP #### [place] [address] CMPon 06-03-2019 Albumin/Globulin [Mass ratio] 1.4 {ratio} Normal 0.9-1.6 [facility] ([place]) Comment on above: Performed By: #### C BC, ADIFF, ANEU, A1C, GFR, TSH, CMP #### [place] [address] ALP [Catalytic activity/Vol] 75 U/L Normal 38-126 [facility] ([place] Comment on above: Performed By: #### C BC, ADIFF, ANEU, A1C, GFR, TSH, CMP #### [place] [id number] ALT [Catalytic activity/Vol] 19 U/L Normal 12-55 [facility] ([place] Comment on above: Performed By: #### C BC, ADIFF, ANEU, A1C, GFR, TSH, CMP #### [place] [id number] Bili Total 0.5 mg/dL Normal 0.2-1.2 [facility] ([place] Comment on above: Performed By: #### C BC, ADIFF, ANEU, A1C, GFR, TSH, CMP #### [place] [address] Creatinine [Mass/Vol] 0.66 mg/dL Normal 0.60-1.40 [facility] ([place] Comment on above: Performed By: #### C BC, ADIFF, ANEU, A1C, GFR, TSH, CMP #### [address] [address] Globulin (S) [Mass/Vol] 3.0 G/dL Normal 1.5-3.8 [facility] ([place]) Comment on above: Performed By: #### C BC, ADIFF, ANEU, A1C, GFR, TSH, CMP #### [address] [address] Glucose [Mass/Vol] 91 mg/dL Normal 70-110 [facility] ([place]) Comment on above: Performed By: #### C BC, ADIFF, ANEU, A1C, GFR, TSH, CMP #### [address] [address] Protein [Mass/Vol] 7.2 G/dL Normal 6.0-8.5 [facility] ([place]) Comment on above: Performed By: #### C BC, ADIFF, ANEU, A1C, GFR, TSH, CMP #### [place] [id number] Urea nitrogen/Creatinine [Mass ratio] 12.1 ratio Normal 10.0-22.0 [facility] ([place]) Comment on above: Performed By: #### C BC, ADIFF, ANEU, A1C, GFR, TSH, CMP #### [address] [address] Albumin [Mass/Vol] 4.2 G/dL Normal 3.2-4.8 [facility] ([place] Comment on above: Performed By: #### C BC, ADIFF, ANEU, A1C, GFR, TSH, CMP #### [address] [address] AST [Catalytic activity/Vol] 18 U/L Normal 8-34 [facility] ([place] Comment on above: Performed By: #### C BC, ADIFF, ANEU, A1C, GFR, TSH, CMP #### [address] [address] Calcium [Mass/Vol] 9.2 mg/dL Normal 8.4-10.1 [facility] ([place]) Comment on above: Performed By: #### C BC, ADIFF, ANEU, A1C, GFR, TSH, CMP #### [address] [address] Chloride [Moles/Vol] 102 mmol/L Normal 98-110 [facility] ([place]) Comment on above: Performed By: #### C BC, ADIFF, ANEU, A1C, GFR, TSH, CMP #### [address] [address] CO2 [Moles/Vol] 29 mmol/L Normal 22-32 [facility] ([place]) Comment on above: Performed By: #### C BC, ADIFF, ANEU, A1C, GFR, TSH, CMP #### [address] [address] Electrolyte Balance 6.0 mEq/L Normal 4.0-15.0 [facility] ([place]) Comment on above: Performed By: #### C BC, ADIFF, ANEU, A1C, GFR, TSH, CMP #### [place] [id number] Potassium [Moles/Vol] 4.4 mmol/L Normal 3.5-5.0 [facility] ([place] Comment on above: Performed By: #### C BC, ADIFF, ANEU, A1C, GFR, TSH, CMP #### [address] [address] Sodium [Moles/Vol] 137 mmol/L Normal 136-145 [facility] ([place] Comment on above: Performed By: #### C BC, ADIFF, ANEU, A1C, GFR, TSH, CMP #### [address] [address] Urea nitrogen [Mass/Vol] 8.0 mg/dL Normal 8.0-22.0 [facility] ([place]) Comment on above: Performed By: #### C BC, ADIFF, ANEU, A1C, GFR, TSH, CMP #### [address] [address] LIPIDon 06-03-2019 Cholesterol in HDL [Mass/Vol] 44 mg/dL Normal 40-59 [facility] ([place] Comment on above: Result Comment: HDL Reference Interval: Less than 40 Low - high risk 60 or above Optimal/lowers risk Performed By: #### C BC, ADIFF, ANEU, A1C, GFR, TSH, CMP #### [address] [address] Cholesterol in LDL [Mass/Vol] 83 mg/dL Normal 0-129 [facility] ([place]) Comment on above: Result Comment: LDL is a calculated result and requires a 12-hr fast. LDL Reference Interval: Less than 100 Optimal 100-129 Near or above optimal 130-159 Borderline high risk 160-189 High risk 190 and above Very high risk Performed By: #### C BC, ADIFF, ANEU, A1C, GFR, TSH, CMP #### [address] [address] Triglyceride [Mass/Vol] 94 mg/dL Normal 3-149 [facility] ([place]) Comment on above: Result Comment: Trig lyceride Reference Interval: Less than 150 Normal 150-199 Borderline high risk 200-499 High risk 500 or higher Very high risk Performed By: #### C BC, ADIFF, ANEU, A1C, GFR, TSH, CMP #### [address] [address] Cholesterol [Mass/Vol] 146 mg/dL Normal 50-199 [facility] ([place]) Comment on above: Result Comment: Chol esterol Reference Interval: Less than 200 Desirable 200-239 Borderline high risk 240 and above High risk Performed By: #### C BC, ADIFF, ANEU, A1C, GFR, TSH, CMP #### [address] [address] TSHon 06-03-2019 TSH Qn 1.340 mcIU/mL Normal 0.360-3.740 [facility] ([place]) Comment on above: Performed By: #### C BC, ADIFF, ANEU, A1C, GFR, TSH, CMP #### [address] [address] .Auto Diffon 02-03-2019 Ammonia (P) [Mass/Vol] 0.60 10 3/mcL Normal 0.09-1.40 [facility] ([place] Comment on above: Performed By: #### C BC, ADIFF, ANEU, A1C, GFR, TSH, CMP #### [address] [address] Basophils (Bld) [#/Vol] 0.10 10 3/mcL Normal 0.00-0.27 [facility] ([place]) Comment on above: Performed By: #### C BC, ADIFF, ANEU, A1C, GFR, TSH, CMP #### [address] [address] Basophils/100 WBC (Bld) 1.1 % Normal 0.0-2.5 [facility] ([place]) Comment on above: Performed By: #### C BC, ADIFF, ANEU, A1C, GFR, TSH, CMP #### [address] [address] Eosinophils (Bld) [#/Vol] 0.20 10 3/mcL Normal 0.00-0. 65 [facility] ([place]) Comment on above: Performed By: #### C BC, ADIFF, ANEU, A1C, GFR, TSH, CMP #### [address] [address] Eosinophils/100 WBC (Bld) 3.3 % Normal 0.0-6.0 [facility] ([place]) Comment on above: Performed By: #### C BC, ADIFF, ANEU, A1C, GFR, TSH, CMP #### [address] [address] Lymphocytes (Bld) [#/Vol] 1.50 10 3/mcL Normal 0.90-4. 32 [facility] ([place]) Comment on above: Performed By: #### C BC, ADIFF, ANEU, A1C, GFR, TSH, CMP #### [address] [address] Lymphocytes/100 WBC (Bld) 28.5 % Normal 20.0-40.0 [facility] ([place]) Comment on above: Performed By: #### C BC, ADIFF, ANEU, A1C, GFR, TSH, CMP #### [address] [address] Monocytes/100 WBC (Bld) 10.5 % Normal 2.0-13.0 [facility] ([place]) Comment on above: Performed By: #### C BC, ADIFF, ANEU, A1C, GFR, TSH, CMP #### [address] [address] Neutrophils/100 WBC (Bld) 56.6 % Normal 50.0-75.0 [facility] ([place] Comment on above: Performed By: #### C BC, ADIFF, ANEU, A1C, GFR, TSH, CMP #### [address] [address] .GFRon 02-03-2019 GFR >60 Normal [facility] ([place] Comment on above: Result Comment: GFR Population mean for , Non- Americans Ages 20-29 = 116 mL/min/1.73 sq.m. Ages 30-39 = 107 mL/min/1.73 sq.m. Ages 40-49 = 99 mL/min/1.73 sq.m. Ages 50-59 = 93 mL/min/1.73 sq.m. Ages 60-69 = 85 mL/min/1.73 sq.m. Ages 70+ = 75 mL/min/1.73 sq.m. Chronic Kidney Disease: Less than 60 mL/min/1.73 square meters End Stage Renal Disease: Less than 15 mL/min/1.73 square meters Performed By: #### C BC, ADIFF, ANEU, A1C, GFR, TSH, CMP #### [address] [address] GFR Non- >60 Normal [facility] ([place]) Comment on above: Result Comment: GFR Population mean for , Non- Americans Ages 20-29 = 116 mL/min/1.73 sq.m. Ages 30-39 = 107 mL/min/1.73 sq.m. Ages 40-49 = 99 mL/min/1.73 sq.m. Ages 50-59 = 93 mL/min/1.73 sq.m. Ages 60-69 = 85 mL/min/1.73 sq.m. Ages 70+ = 75 mL/min/1.73 sq.m. Chronic Kidney Disease: Less than 60 mL/min/1.73 square meters End Stage Renal Disease: Less than 15 mL/min/1.73 square meters Performed By: #### C BC, ADIFF, ANEU, A1C, GFR, TSH, CMP #### [place] [id number] .NEUABSon 02-03-2019 Neutrophils (Bld) [#/Vol] 3.10 10 3/mcL Normal 2.25-8. 10 [facility] ([place] Comment on above: Performed By: #### C BC, ADIFF, ANEU, A1C, GFR, TSH, CMP #### [place] [address] A1Con 02-03-2019 HbA1c (Bld) [Mass fraction] 6.6 % High 4.0-6.0 [facility] ([place] Comment on above: Performed By: #### C BC, ADIFF, ANEU, A1C, GFR, TSH, CMP #### [place] [address] CBCon 02-03-2019 Erythrocyte distribution width (RBC) [Ratio] 16.3 % High 11.5-15.5 [facility] ([place]) Comment on above: Performed By: #### C BC, ADIFF, ANEU, A1C, GFR, TSH, CMP #### [place] [address] Hematocrit (Bld) [Volume fraction] 49.7 % Normal 40.0-52.0 [facility] ([place] Comment on above: Performed By: #### C BC, ADIFF, ANEU, A1C, GFR, TSH, CMP #### [place] [address] Hemoglobin (Bld) [Mass/Vol] 16.6 G/dL Normal 13.0-17.5 [facility] ([place] Comment on above: Performed By: #### C BC, ADIFF, ANEU, A1C, GFR, TSH, CMP #### [place] [address] MCH (RBC) [Entitic mass] 30.2 pg Normal 27.0-33.0 [facility] ([place] Comment on above: Performed By: #### C BC, ADIFF, ANEU, A1C, GFR, TSH, CMP #### [address] [address] MCHC (RBC) [Mass/Vol] 33.4 G/dL Normal 32.0-36.0 [facility] ([place] Comment on above: Performed By: #### C BC, ADIFF, ANEU, A1C, GFR, TSH, CMP #### [place] [id number] MCV (RBC) [Entitic vol] 90.4 fL Normal 81.0-100.0 [facility] ([place] Comment on above: Performed By: #### C BC, ADIFF, ANEU, A1C, GFR, TSH, CMP #### [place] [address] Platelet mean volume (Bld) [Entitic vol] 8.3 fL Normal 6.4-10.5 [facility] ([place] Comment on above: Performed By: #### C BC, ADIFF, ANEU, A1C, GFR, TSH, CMP #### [place] [id number] Platelets (Bld) [#/Vol] 311 10 3/mcL Normal 150-450 [facility] ([place] Comment on above: Performed By: #### C BC, ADIFF, ANEU, A1C, GFR, TSH, CMP #### [place] [id number] RBC (Bld) [#/Vol] 5.50 10 6/mcL Normal 4.50-6.00 [facility] ([place] Comment on above: Performed By: #### C BC, ADIFF, ANEU, A1C, GFR, TSH, CMP #### [place] [id number] WBC (Bld) [#/Vol] 5.40 10 3/mcL Normal 4.50-10.80 [facility] ([place] Comment on above: Performed By: #### C BC, ADIFF, ANEU, A1C, GFR, TSH, CMP #### [place] [id number] CMPon 02-03-2019 Albumin/Globulin [Mass ratio] 1.3 {ratio} Normal 0.9-1.6 [facility] ([place] Comment on above: Performed By: #### C BC, ADIFF, ANEU, A1C, GFR, TSH, CMP #### [address] [address] ALP [Catalytic activity/Vol] 94 U/L Normal 38-126 [facility] ([place] Comment on above: Performed By: #### C BC, ADIFF, ANEU, A1C, GFR, TSH, CMP #### [address] [address] Bili Total 0.6 mg/dL Normal 0.2-1.2 [facility] ([place] Comment on above: Performed By: #### C BC, ADIFF, ANEU, A1C, GFR, TSH, CMP #### [address] [address] Globulin (S) [Mass/Vol] 3.0 G/dL Normal 1.5-3.8 [facility] ([place] Comment on above: Performed By: #### C BC, ADIFF, ANEU, A1C, GFR, TSH, CMP #### [address] [address] Protein [Mass/Vol] 6.9 G/dL Normal 6.0-8.5 [facility] ([place]) Comment on above: Performed By: #### C BC, ADIFF, ANEU, A1C, GFR, TSH, CMP #### [address] [address] Albumin [Mass/Vol] 3.9 G/dL Normal 3.2-4.8 [facility] ([place]) Comment on above: Performed By: #### C BC, ADIFF, ANEU, A1C, GFR, TSH, CMP #### [address] [address] ALT [Catalytic activity/Vol] 25 U/L Normal 12-55 [facility] ([place]) Comment on above: Performed By: #### C BC, ADIFF, ANEU, A1C, GFR, TSH, CMP #### [address] [address] AST [Catalytic activity/Vol] 23 U/L Normal 8-34 [facility] ([place] Comment on above: Performed By: #### C BC, ADIFF, ANEU, A1C, GFR, TSH, CMP #### [address] [address] Calcium [Mass/Vol] 8.5 mg/dL Normal 8.4-10.1 [facility] ([place]) Comment on above: Performed By: #### C BC, ADIFF, ANEU, A1C, GFR, TSH, CMP #### [address] [address] Chloride [Moles/Vol] 101 mmol/L Normal 98-110 [facility] ([place]) Comment on above: Performed By: #### C BC, ADIFF, ANEU, A1C, GFR, TSH, CMP #### [address] [address] CO2 [Moles/Vol] 30 mmol/L Normal 22-32 [facility] ([place]) Comment on above: Performed By: #### C BC, ADIFF, ANEU, A1C, GFR, TSH, CMP #### [address] [address] Creatinine [Mass/Vol] 0.65 mg/dL Normal 0.60-1.40 [facility] ([place]) Comment on above: Performed By: #### C BC, ADIFF, ANEU, A1C, GFR, TSH, CMP #### [address] [address] Electrolyte Balance 6.0 mEq/L Normal 4.0-15.0 [facility] ([place]) Comment on above: Performed By: #### C BC, ADIFF, ANEU, A1C, GFR, TSH, CMP #### [address] [address] Glucose [Mass/Vol] 91 mg/dL Normal 70-110 [facility] ([place] Comment on above: Performed By: #### C BC, ADIFF, ANEU, A1C, GFR, TSH, CMP #### [address] [address] Potassium [Moles/Vol] 4.4 mmol/L Normal 3.5-5.0 [facility] ([place]) Comment on above: Performed By: #### C BC, ADIFF, ANEU, A1C, GFR, TSH, CMP #### [place] [id number] [place] [id number] Sodium [Moles/Vol] 137 mmol/L Normal 136-145 [facility] ([place]) Comment on above: Performed By: #### C BC, ADIFF, ANEU, A1C, GFR, TSH, CMP #### [place] [id number] [place] [id number] Urea nitrogen [Mass/Vol] 4.0 mg/dL Low 8.0-22.0 [facility] ([place]) Comment on above: Performed By: #### C BC, ADIFF, ANEU, A1C, GFR, TSH, CMP #### [address] [address] Urea nitrogen/Creatinine [Mass ratio] 6.2 ratio Low 10.0-22.0 [facility] ([place]) Comment on above: Performed By: #### C BC, ADIFF, ANEU, A1C, GFR, TSH, CMP #### [address] [address] LIPIDon 02-03-2019 Cholesterol [Mass/Vol] 150 mg/dL Normal 50-199 [facility] [facility] ([place] Comment on above: Result Comment: Chol esterol Reference Interval: Less than 200 Desirable 200-239 Borderline high risk 240 and above High risk Performed By: #### C BC, ADIFF, ANEU, A1C, GFR, TSH, CMP #### [address] [address] Cholesterol in HDL [Mass/Vol] 38 mg/dL Low 40-59 [facility] ([place]) Comment on above: Result Comment: HDL Reference Interval: Less than 40 Low - high risk 60 or above Optimal/lowers risk Performed By: #### C BC, ADIFF, ANEU, A1C, GFR, TSH, CMP #### [address] [address] Cholesterol in LDL [Mass/Vol] 83 mg/dL Normal 0-129 [facility] ([place] Comment on above: Result Comment: LDL is a calculated result and requires a 12-hr fast. LDL Reference Interval: Less than 100 Optimal 100-129 Near or above optimal 130-159 Borderline high risk 160-189 High risk 190 and above Very high risk Performed By: #### C BC, ADIFF, ANEU, A1C, GFR, TSH, CMP #### [place] [id number] [place] [address] Triglyceride [Mass/Vol] 146 mg/dL Normal 3-149 [facility] ([place]) Comment on above: Result Comment: Trig lyceride Reference Interval: Less than 150 Normal 150-199 Borderline high risk 200-499 High risk 500 or higher Very high risk Performed By: #### C BC, ADIFF, ANEU, A1C, GFR, TSH, CMP #### [address] [address] TSHon 02-03-2019 TSH Qn 2.150 mcIU/mL Normal 0.360-3.740 [facility] ([place]) Comment on above: Result Comment: Pankaj burns note as of 02/08/17 new pediatric reference intervals were added for this test. Performed By: #### C BC, ADIFF, ANEU, A1C, GFR, TSH, CMP #### [address] [address] .GFRon 11-04-2018 GFR Non- >60 Normal [facility] ([place] Comment on above: Result Comment: GFR Population mean for , Non- Americans Ages 20-29 = 116 mL/min/1.73 sq.m. Ages 30-39 = 107 mL/min/1.73 sq.m. Ages 40-49 = 99 mL/min/1.73 sq.m. Ages 50-59 = 93 mL/min/1.73 sq.m. Ages 60-69 = 85 mL/min/1.73 sq.m. Ages 70+ = 75 mL/min/1.73 sq.m. Chronic Kidney Disease: Less than 60 mL/min/1.73 square meters End Stage Renal Disease: Less than 15 mL/min/1.73 square meters Performed By: #### B MP, GFR, LIPID, A1C #### [address] [address] GFR >60 Normal [facility] ([place]) Comment on above: Result Comment: GFR Population mean for , Non- Americans Ages 20-29 = 116 mL/min/1.73 sq.m. Ages 30-39 = 107 mL/min/1.73 sq.m. Ages 40-49 = 99 mL/min/1.73 sq.m. Ages 50-59 = 93 mL/min/1.73 sq.m. Ages 60-69 = 85 mL/min/1.73 sq.m. Ages 70+ = 75 mL/min/1.73 sq.m. Chronic Kidney Disease: Less than 60 mL/min/1.73 square meters End Stage Renal Disease: Less than 15 mL/min/1.73 square meters Performed By: #### B MP, GFR, LIPID, A1C #### [address] [address] A1Con 11-04-2018 HbA1c (Bld) [Mass fraction] 6.9 % High 4.0-6.0 [facility] ([place] Comment on above: Performed By: #### C BC, ADIFF, ANEU, A1C, GFR, TSH, CMP #### [address] [address] BMPon 11-04-2018 Creatinine [Mass/Vol] 0.70 mg/dL Normal 0.60-1.40 [facility] ([place]) Comment on above: Performed By: #### B MP, GFR, LIPID, A1C #### [address] [address] Urea nitrogen/Creatinine [Mass ratio] 12.9 ratio Normal 10.0-22.0 [facility] ([place] Comment on above: Performed By: #### B MP, GFR, LIPID, A1C #### [address] [address] Calcium [Mass/Vol] 9.1 mg/dL Normal 8.4-10.1 [facility] ([place]) Comment on above: Performed By: #### B MP, GFR, LIPID, A1C #### [address] [address] Chloride [Moles/Vol] 99 mmol/L Normal 98-110 [facility] ([place] Comment on above: Performed By: #### B MP, GFR, LIPID, A1C #### [address] [address] CO2 [Moles/Vol] 28 mmol/L Normal 22-32 [facility] ([place]) Comment on above: Performed By: #### B MP, GFR, LIPID, A1C #### [address] [address] Electrolyte Balance 9.0 mEq/L Normal 4.0-15.0 [facility] ([place]) Comment on above: Performed By: #### B MP, GFR, LIPID, A1C #### [address] [address] Glucose [Mass/Vol] 117 mg/dL High 70-110 [facility] ([place] Comment on above: Performed By: #### B MP, GFR, LIPID, A1C #### [address] [address] Potassium [Moles/Vol] 4.3 mmol/L Normal 3.5-5.0 [facility] ([place] Comment on above: Performed By: #### B MP, GFR, LIPID, A1C #### [address] [address] Sodium [Moles/Vol] 136 mmol/L Normal 136-145 [facility] ([place] Comment on above: Performed By: #### B MP, GFR, LIPID, A1C #### [address] [address] Urea nitrogen [Mass/Vol] 9.0 mg/dL Normal 8.0-22.0 [facility] ([place] Comment on above: Performed By: #### B MP, GFR, LIPID, A1C #### [address] [address] LIPIDon 11-04-2018 Cholesterol in HDL [Mass/Vol] 43 mg/dL Normal 40-59 [facility] ([place] Comment on above: Result Comment: HDL Reference Interval: Less than 40 Low - high risk 60 or above Optimal/lowers risk Performed By: #### B MP, GFR, LIPID, A1C #### [address] [address] Cholesterol in LDL [Mass/Vol] 78 mg/dL Normal 0-129 [facility] ([place] Comment on above: Result Comment: LDL is a calculated result and requires a 12-hr fast. LDL Reference Interval: Less than 100 Optimal 100-129 Near or above optimal 130-159 Borderline high risk 160-189 High risk 190 and above Very high risk Performed By: #### B MP, GFR, LIPID, A1C #### [address] [address] Cholesterol [Mass/Vol] 145 mg/dL Normal 50-199 [facility] ([place]) Comment on above: Result Comment: Chol esterol Reference Interval: Less than 200 Desirable 200-239 Borderline high risk 240 and above High risk Performed By: #### B MP, GFR, LIPID, A1C #### [address] [address] Triglyceride [Mass/Vol] 120 mg/dL Normal 3-149 [facility] ([place]) Comment on above: Result Comment: Trig lyceride Reference Interval: Less than 150 Normal 150-199 Borderline high risk 200-499 High risk 500 or higher Very high risk Performed By: #### B MP, GFR, LIPID, A1C #### [address] [address] MALBRon 11-04-2018 U Creatinine 48.6 mg/dL Normal [facility] ([place] Comment on above: Performed By: #### C BC, JESSA, ANEU, A1C, GFR, TSH, CMP #### [address] [address] U Microalb 585 mcg/dL Normal [facility] ([place] Comment on above: Performed By: #### C BC, ADIFF, ANEU, A1C, GFR, TSH, CMP #### [address] [address] U Ratio Alb/Cre 12.0 mcg/mg Normal 0.0-16.9 [facility] ([place] Comment on above: Performed By: #### C BC, ADIFF, ANEU, A1C, GFR, TSH, CMP #### [address] [address] .Auto Diffon 08-03-2018 Ammonia (P) [Mass/Vol] 0.80 10 3/mcL Normal 0.09-1.40 [facility] ([place]) Comment on above: Performed By: #### C BC, ADIFF, ANEU, A1C, GFR, TSH, CMP #### [address] [address] Basophils (Bld) [#/Vol] 0.10 10 3/mcL Normal 0.00-0.27 [facility] ([place]) Comment on above: Performed By: #### C BC, ADIFF, ANEU, A1C, GFR, TSH, CMP #### [address] [address] Basophils/100 WBC (Bld) 0.7 % Normal 0.0-2.5 [facility] ([place]) Comment on above: Performed By: #### C BC, ADIFF, ANEU, A1C, GFR, TSH, CMP #### [address] [address] Eosinophils (Bld) [#/Vol] 0.10 10 3/mcL Normal 0.00-0. 65 [facility] ([place]) Comment on above: Performed By: #### C BC, ADIFF, ANEU, A1C, GFR, TSH, CMP #### [address] [address] Eosinophils/100 WBC (Bld) 1.6 % Normal 0.0-6.0 [facility] ([place]) Comment on above: Performed By: #### C BC, ADIFF, ANEU, A1C, GFR, TSH, CMP #### [address] [address] Lymphocytes (Bld) [#/Vol] 2.20 10 3/mcL Normal 0.90-4. 32 [facility] ([place]) Comment on above: Performed By: #### C BC, ADIFF, ANEU, A1C, GFR, TSH, CMP #### [address] [address] Lymphocytes/100 WBC (Bld) 27.8 % Normal 20.0-40.0 [facility] ([place]) Comment on above: Performed By: #### C BC, ADIFF, ANEU, A1C, GFR, TSH, CMP #### [address] [address] Monocytes/100 WBC (Bld) 9.9 % Normal 2.0-13.0 [facility] ([place]) Comment on above: Performed By: #### C BC, ADIFF, ANEU, A1C, GFR, TSH, CMP #### [address] [address] Neutrophils/100 WBC (Bld) 60.0 % Normal 50.0-75.0 [facility] ([place] Comment on above: Performed By: #### C BC, ADIFF, ANEU, A1C, GFR, TSH, CMP #### [address] [address] .GFRon 08-03-2018 GFR Non- >60 Normal [facility] ([place] Comment on above: Result Comment: GFR Population mean for , Non- Americans Ages 20-29 = 116 mL/min/1.73 sq.m. Ages 30-39 = 107 mL/min/1.73 sq.m. Ages 40-49 = 99 mL/min/1.73 sq.m. Ages 50-59 = 93 mL/min/1.73 sq.m. Ages 60-69 = 85 mL/min/1.73 sq.m. Ages 70+ = 75 mL/min/1.73 sq.m. Chronic Kidney Disease: Less than 60 mL/min/1.73 square meters End Stage Renal Disease: Less than 15 mL/min/1.73 square meters Performed By: #### C BC, ADIFF, ANEU, A1C, GFR, TSH, CMP #### [address] [address] GFR >60 Normal [facility] ([place] Comment on above: Result Comment: GFR Population mean for , Non- Americans Ages 20-29 = 116 mL/min/1.73 sq.m. Ages 30-39 = 107 mL/min/1.73 sq.m. Ages 40-49 = 99 mL/min/1.73 sq.m. Ages 50-59 = 93 mL/min/1.73 sq.m. Ages 60-69 = 85 mL/min/1.73 sq.m. Ages 70+ = 75 mL/min/1.73 sq.m. Chronic Kidney Disease: Less than 60 mL/min/1.73 square meters End Stage Renal Disease: Less than 15 mL/min/1.73 square meters Performed By: #### C BC, ADIFF, ANEU, A1C, GFR, TSH, CMP #### [address] [address] .NEUABSon 08-03-2018 Neutrophils (Bld) [#/Vol] 4.80 10 3/mcL Normal 2.25-8. 10 [facility] ([place] Comment on above: Performed By: #### C BC, ADIFF, ANEU, A1C, GFR, TSH, CMP #### [place] [address] A1Con 08-03-2018 HbA1c (Bld) [Mass fraction] 8.0 % High 4.0-6.0 [facility] ([place] Comment on above: Performed By: #### C BC, ADIFF, ANEU, A1C, GFR, TSH, CMP #### [place] [address] CBCon 08-03-2018 Erythrocyte distribution width (RBC) [Ratio] 13.4 % Normal 11.5-15.5 [facility] ([place] Comment on above: Performed By: #### C BC, ADIFF, ANEU, A1C, GFR, TSH, CMP #### [place] [address] Hematocrit (Bld) [Volume fraction] 49.8 % Normal 40.0-52.0 [facility] ([place] Comment on above: Performed By: #### C BC, ADIFF, ANEU, A1C, GFR, TSH, CMP #### [place] [address] Hemoglobin (Bld) [Mass/Vol] 16.9 G/dL Normal 13.0-17.5 [facility] ([place] Comment on above: Performed By: #### C BC, ADIFF, ANEU, A1C, GFR, TSH, CMP #### [address] [address] MCH (RBC) [Entitic mass] 31.5 pg Normal 27.0-33.0 [facility] ([place] Comment on above: Performed By: #### C BC, ADIFF, ANEU, A1C, GFR, TSH, CMP #### [address] [address] MCHC (RBC) [Mass/Vol] 33.9 G/dL Normal 32.0-36.0 [facility] ([place] Comment on above: Performed By: #### C BC, ADIFF, ANEU, A1C, GFR, TSH, CMP #### [place] [id number] MCV (RBC) [Entitic vol] 92.9 fL Normal 81.0-100.0 [facility] ([place]) Comment on above: Performed By: #### C BC, ADIFF, ANEU, A1C, GFR, TSH, CMP #### [address] [address] Platelet mean volume (Bld) [Entitic vol] 8.7 fL Normal 6.4-10.5 [facility] ([place] Comment on above: Performed By: #### C BC, ADIFF, ANEU, A1C, GFR, TSH, CMP #### [address] [address] Platelets (Bld) [#/Vol] 337 10 3/mcL Normal 150-450 [facility] ([place] Comment on above: Performed By: #### C BC, ADIFF, ANEU, A1C, GFR, TSH, CMP #### [address] [address] RBC (Bld) [#/Vol] 5.36 10 6/mcL Normal 4.50-6.00 [facility] ([place] Comment on above: Performed By: #### C BC, ADIFF, ANEU, A1C, GFR, TSH, CMP #### [address] [address] WBC (Bld) [#/Vol] 8.00 10 3/mcL Normal 4.50-10.80 [facility] ([place] Comment on above: Performed By: #### C BC, ADIFF, ANEU, A1C, GFR, TSH, CMP #### [address] [address] CMPon 08-03-2018 Albumin/Globulin [Mass ratio] 1.3 {ratio} Normal 0.9-1.6 [facility] ([place] Comment on above: Performed By: #### C BC, ADIFF, ANEU, A1C, GFR, TSH, CMP #### [address] [address] ALP [Catalytic activity/Vol] 97 U/L Normal 38-126 [facility] ([place] Comment on above: Performed By: #### C BC, ADIFF, ANEU, A1C, GFR, TSH, CMP #### [place] [id number] Bili Total 0.7 mg/dL Normal 0.2-1.2 [facility] ([place] Comment on above: Performed By: #### C BC, ADIFF, ANEU, A1C, GFR, TSH, CMP #### [place] [id number] Globulin (S) [Mass/Vol] 3.3 G/dL Normal 1.5-3.8 [facility] ([place]) Comment on above: Performed By: #### C BC, ADIFF, ANEU, A1C, GFR, TSH, CMP #### [place] [id number] Protein [Mass/Vol] 7.7 G/dL Normal 6.0-8.5 [facility] ([place]) Comment on above: Performed By: #### C BC, ADIFF, ANEU, A1C, GFR, TSH, CMP #### [address] [address] Albumin [Mass/Vol] 4.4 G/dL Normal 3.2-4.8 [facility] ([place] Comment on above: Performed By: #### C BC, ADIFF, ANEU, A1C, GFR, TSH, CMP #### [address] [address] ALT [Catalytic activity/Vol] 24 U/L Normal 12-55 [facility] ([place] Comment on above: Performed By: #### C BC, ADIFF, ANEU, A1C, GFR, TSH, CMP #### [address] [address] AST [Catalytic activity/Vol] 12 U/L Normal 8-34 [facility] ([place] Comment on above: Performed By: #### C BC, ADIFF, ANEU, A1C, GFR, TSH, CMP #### [address] [address] Calcium [Mass/Vol] 9.1 mg/dL Normal 8.4-10.1 [facility] ([place] Comment on above: Performed By: #### C BC, ADIFF, ANEU, A1C, GFR, TSH, CMP #### [address] [address] Chloride [Moles/Vol] 103 mmol/L Normal 98-110 [facility] ([place]) Comment on above: Performed By: #### C BC, ADIFF, ANEU, A1C, GFR, TSH, CMP #### [address] [address] CO2 [Moles/Vol] 25 mmol/L Normal 22-32 [facility] ([place] Comment on above: Performed By: #### C BC, ADIFF, ANEU, A1C, GFR, TSH, CMP #### [address] [address] Creatinine [Mass/Vol] 0.77 mg/dL Normal 0.60-1.40 [facility] ([place] Comment on above: Performed By: #### C BC, ADIFF, ANEU, A1C, GFR, TSH, CMP #### [address] [address] Electrolyte Balance 14.0 mEq/L Normal 4.0-15.0 [facility] ([place]) Comment on above: Performed By: #### C BC, ADIFF, ANEU, A1C, GFR, TSH, CMP #### [address] [address] Glucose [Mass/Vol] 137 mg/dL High 70-110 [facility] ([place] Comment on above: Performed By: #### C BC, ADIFF, ANEU, A1C, GFR, TSH, CMP #### [address] [address] Potassium [Moles/Vol] 4.4 mmol/L Normal 3.5-5.0 [facility] ([place] Comment on above: Performed By: #### C BC, ADIFF, ANEU, A1C, GFR, TSH, CMP #### [address] [address] Sodium [Moles/Vol] 142 mmol/L Normal 136-145 [facility] ([place] Comment on above: Performed By: #### C BC, ADIFF, ANEU, A1C, GFR, TSH, CMP #### [address] [address] Urea nitrogen [Mass/Vol] 6.0 mg/dL Low 8.0-22.0 [facility] ([place] Comment on above: Performed By: #### C BC, ADIFF, ANEU, A1C, GFR, TSH, CMP #### [address] [address] Urea nitrogen/Creatinine [Mass ratio] 7.8 ratio Low 10.0-22.0 [facility] ([place] Comment on above: Performed By: #### C BC, ADIFF, ANEU, A1C, GFR, TSH, CMP #### [address] [address] TSHon 08-03-2018 TSH Qn 1.200 mcIU/mL Normal 0.360-3.740 [facility] ([place]) Comment on above: Result Comment: Pankaj burns note as of 02/08/17 new pediatric reference intervals were added for this test. Performed By: #### C BC, ADIFF, ANEU, A1C, GFR, TSH, CMP #### [address] [address] Encounters Encounter Date Encounter Type Care Provider Facility Start: 11-09-2024 Encounter for genera l adult medical examination with abnormal findings Sabrina Georges [facility] Start: 11-03-2024 End: 11-03-2024 ambulatory Sabrina Su [employer] [facility] Work Phone: [facility] Work Phone: Start: 11-03-2024 End: 11-03-2024 Patient encounter procedure Sabrina Su [facility] -Laboratory, Angus Peguero [facility] Start: 11-03-2024 End: 11-03-2024 ambulatory Sabrina Su Facility:[facility] Start: 03-04-2023 End: 03-04-2023 ambulatory [facility] Work Phone: Start: 03-04-2023 End: 03-04-2023 Patient encounter procedure [facility]-Laboratory, Angus Peguero [facility] Payers Date Payer Category Payer Self-pay [id number] 2024 Unknown [id number] Unknown AMARILIS [id number] Unknown JOE DAHL [facility] [id number] Unknown [id number] Social History Date Type [facility]ail [facility] Work Phone: Start: 1975 Sex Assigned At Male [facility] Work Phone: Start: 11-09-2024 Sex Male (finding) [facility] Evaluation note Note Date & Type Note Facility Evaluation note No assessment information availa ble [facility] Work Phone: Reason for referral (narrative) Note Date & Type Note Facility Reason for referral (narrative) No reason for referral information available [facility] Work Phone: Summary Purpose Family History No Family History Records FoundNo Family History Records Found Advance Directives No Advanced Directives Records FoundNo Advanced Directives Records Found Additional Source Comments (unrecognized sect ion and content) No Status Records FoundNo Status Records Found INFORMATION SOURCE (unrecogn ized section and content) DATE CREATED AUTHOR 06/23/2019 [facility] ([place]) DATE CREATED AUTHOR AUTHOR'S CHASITY ATION 01/16/2025 [facility] Care Teams (unrecognized sec tion and content) Team Status: Active Member Role Status Dates AMIRA Diego Primary Care Provider Active Team Status: Inactive Member Role Status Dates AMIRA Diego Primary Care Provide r, Attending Provider, Referring Provider Active Team Status: Inactive Member Role Status Dates AMIRA Diego Primary Care Provider Active Start: November 03, 2024 End: November 03, 2024 AMIRA Diego Attending Provider Active St art: November 03, 2024 End: November 03, 2024 Goals (unrecognized section and content) Goals may be documented in a n alternate sectionGoals may be documented in an alternate section FOR RECORDS PERTAINING TO PATIENTS WHO ARE OR HAVE BEEN ENROLLED IN A CHEMICAL DEPENDENCY/SUBSTANCEABUSE PROGRAM, SOME INFORMATION MAY BE OMITTED. This clinical summary was aggregated from multiple sources. Caution should be exercised in using it in the provision of clinical care. This summary normalizes information from multiple sources, and as a consequence, information in this document may materially change the coding, format and clinical context of patient data. In addition, data may be omitted in some cases. CLINICAL DECISIONS SHOULD BE BASED ON THE PRIMARY CLINICAL RECORDS. [employer] [facility]. provides no warranty or guarantee of the accuracy or completeness of information in this document.
--- NOTE | 2025-03-22 22:51 | EX.ED.DYSGE1 ---
HPI History of Present Illness Chief Complaint: Chest Pain Narrative Narrative: Patient is a 49-year-old male with past medical history of diabetes, hypertension, GERD, hyperlipidemia who presented to the emergency department the chief complaint of chest pain. States that he has had chest pain on and off for about 2 days now. He states that nothing makes this better or worse. He states that if he exerts himself his pain did not worsen. He states that he has not had a stress test or heart cath. He states that he had a burning sensation on the left side of his chest tonight which was different than what he had been experiencing the past 2 days prompting him to come here for further evaluation and management [facility] Medical History Hyperlipemia GERD (gastroesophageal reflux disease) Anxiety Diabetes mellitus Hypertension Allergy/AdvReac Type Severity Reaction Status Date / Time No Known Allergies Allergy Verified 03/22/25 22:09 Social History Smoking Status: Current every day smoker tobacco type: cigarettes ROS ROS ED ROS Narrative Constitutional: Denies any fevers or chills Eyes: Double vision Cardiovascular: Complains of chest pain as noted above denies palpitations Respiratory: Denies shortness of breath Abdomen: Denies nausea vomiting Neurological: Denies numbness, tingling Musculoskeletal: Denies back pain Skin: Denies any rashes or lesions EXAM Physical Exam Narrative Exam Narrative: General: Patient was lying in bed rest comfortably did not appear to be acute distress Head: Atraumatic, normocephalic Eyes: PERRL bilateral, EOMI Black, no conjunctival injection noted Neck: Soft, supple, trachea midline Cardiovascular: Regular rate and rhythm Respiratory: Clear to auscultation bilaterally Abdomen: Soft, nondistended, no tenderness to palpation Extremities: +5/5 strength noted in the bilateral lower extremities, radial pulses +2/4 and about extremities, no pedal edema exam Neurological: Patient follow commands knew that he was at [facility] year is 2024 Skin: Warm, dry, intact no rashes or lesions noted Const Vital Signs: 03/22/25 22:08 03/22/25 22:13 03/22/25 22:16 Temperature 98.7 F Temperature Source Oral Pulse Rate 74 Respiratory Rate 16 Respiratory Effort Normal Non-Labored Respiratory Pattern Normal Blood Pressure 171/101 H Blood Pressure Mean 124 Pulse Ox 100 97 Oxygen Delivery Method Room Air Room Air 03/22/25 23:05 03/22/25 23:16 Temperature 98 F Temperature Source Pulse Rate 69 68 Respiratory Rate 18 18 Respiratory Effort Respiratory Pattern Blood Pressure 130/85 H 128/87 H Blood Pressure Mean 100 100 Pulse Ox 97 97 Oxygen Delivery Method Room Air MDM MDM MDM Narrative Medical decision making narrative: Patient is a 49-year-old male who presented to the emergency department with a chief complaint of chest pain. On the differential diagnosis includes but not into ACS, pneumonia, pneumothorax, GERD, anxiety. Once the workup is obtained reviewed he will be reevaluated. Patient CBC reviewed showed no evidence of cytosis white blood count was noted to be Patient's CBC reviewed showed no evidence leukocytosis white blood count was 7.3, he was 14.6, platelet count of 228. Patient sodium is 135, potassium of 2.7, creatinine normal at 0.72. Patient troponin was less than 6 with delta troponin pending. Patient EKG reviewed which showed sinus rhythm rate of 69 bpm. Patient chest x-ray reviewed by myself by radiology showed no acute findings. On reevaluation patient he is feeling better. Patient was advised that he needs to keep a blood pressure log at home and take this to his doctor for their review to see if they need to make any medication adjustments as he was hypertensive when he arrived here despite taking his medications on a regular basis. He is advised that he should obtain stress testing in the outpatient setting. Patient case signed out to oncoming provider to follow-up on delta troponin and see their note for addendum. Lab Data Labs: Laboratory Results - last 24 hr 03/22/25 22:21 WBC 7.3 RBC 4.48 L Hgb 14.6 Hct 41.0 MCV 91.5 MCH 32.6 H MCHC 35.6 RDW Std Deviation 39.5 RDW Coeff of Arti 11.8 Plt Count 228 MPV 9.4 Immature Gran % (Auto) 0.400 Neut % (Auto) 43.3 L Lymph % (Auto) 43.7 H [place] % (Auto) 9.4 Eos % (Auto) 2.7 Baso % (Auto) 0.5 Absolute Neuts (auto) 3.2 Absolute Lymphs (auto) 3.21 Nucleated RBC % 0 Sodium 135 Potassium 3.7 Chloride 97 L Carbon Dioxide 22.5 Anion Gap 15 BUN 6 Creatinine 0.72 Estim Creat Clear Calc 160.33 Est GFR (MDRD) Non-Af 112 BUN/Creatinine Ratio 7.9 L Glucose 219 H Calcium 9.0 Troponin T High Sens < 6 Radiography Diagnostic Testing: Clinical Impression(s) from Imaging Studies Chest X-Ray 03/22/25 22:43 IMPRESSION: NO ACUTE FINDINGS. Reading Location: [facility] Discharge Plan Triage Chief Complaint: Chest Pain ED Provider: Loc Sheehan Dx/Rx/DC Orders Clinical Impression: Chest pain, History of diabetes mellitus, History of gastroesophageal reflux (GERD), Hypertension Primary Care Provider: Sabrina Su Referrals: Sabrina Su, [employer] [employer] [Primary Care Provider] - Activity Restrictions/Additional Instructions: Follow-up with your doctor in outpatient setting. Return if worsening symptoms or concerns. Your blood work did not show any acute findings. Take your blood pressure randomly 2-3 times a day write this down and keep a log and take this to your doctor for the review. Print Language: Tajik
[2025-03-22 22:59] LABS: Anion Gap 15 (5-15); BUN 6 mg/dL (4-19); BUN/Creat Ratio 7.9 RATIO (10-20); Calcium,Total 9.0 mg/dL (7.6-11.0); Carbon Dioxide 22.5 mmol/L (21.0-32.0); Chloride 97 mmol/L (98-108); Estimated Creatinine Clearance 160.33 ml/min (50-250); Glucose 219 mg/dL (70-99); Potassium 3.7 mmol/L (3.3-5.1); Troponin T High Sensitivity < 6 ng/L (<=22)
[2025-03-22 23:05] VITALS: BP 130/85; PULSE 69; RESP 18; O2SAT 97
[2025-03-22 23:16] VITALS: BP 128/87; PULSE 68; RESP 18; TEMP 36.6; O2SAT 97
[2025-03-23] VITALS: BP 115/81; PULSE 66; RESP 18; O2SAT 98
[2025-03-23 01:00] VITALS: BP 133/85; PULSE 61; RESP 18; O2SAT 97
[2025-03-23 01:34] LABS: Troponin T High Sens 2 HR < 6 ng/L (<=22)
[2025-03-23 02:00] VITALS: BP 137/95; PULSE 65; RESP 18; O2SAT 97
== END 2025-03-23 02:10 | disposition home or self-care (01) ==
LOC: ED 22:28
PROVIDERS: Emergency Provider Emergency Medicine; PCP Nurse Practitioner Family; Visit Provider Emergency Medicine
DX: R07.9 Chest pain, unspecified (principal); E11.9 Type 2 diabetes mellitus without complications; I10 Essential (primary) hypertension; K21.9 Gastro-esophageal reflux disease without esophagitis; F17.210 Nicotine dependence, cigarettes, uncomplicated
CPT/HCPCS: 71046; 80048; 84484; 85025; 93005; 96360; 96361; 99284; A4216

== ENCOUNTER → 2025-06-14 | Outpatient (CLI) | payer BC, SELFPAY ==
--- NOTE | 2025-06-14 08:58 | STEWCON_ITS ---
Reason For Study Reason For Study: CHEST PAIN Stress Results Protocol: Lei Protocol WITH DEFINITY Maximum Predicted HR: 171 bpm Target HR: 145 bpm % Maximum Predicted HR: 95 % DurationHeart Rate Stage (mm:ss) (bpm) BP Comment BASELINE 81 118/724 CC DEFINITY FOR ENTIRE TEST STAGE 1 3:00 104 152/78 STAGE 2 3:00 123 160/84 STAGE 3 3:00 148 170/82 STAGE 4 0:30 162 / INCREASED SOB, LEG FATIGUE RECOVERY 106 124/84 Stress Duration: 9:30 mm:ss Maximum Stress HR: 162 bpm Baseline Echocardiogram Findings Stress Echo Wall motion Data Resting WM Intermediate WM Stress WM ECHO/Stress Test Echo W/Contrast Interpretation Summary Exercise stress echo. 49-year-old man with a history of chest pain. Resting EKG demonstrates normal sinus rhythm with a rate of 80 bpm normal inter vals noted. Resting blood pressure is 118/72 mmHg. The patient exercised according to regular Lei protocol for tota l duration of 9-1/2 minutes attaining a maximal heart rate of 166 bpm which was 97% of maximum predicted heart rate. Th e maximum workload was 11.9 metabolic equivalents. At rest there were no ST or T wave changes noted suggest ischemia at peak exercise upsloping ST changes were noted which did not meet the criteria for ischemia no clinical angina was noted the test was terminated due to leg discomfort and fatigue. The rate-pressure product was 25,100 and the peak blood pressure was 170/82 mmHg which was a good blood pressure response to exercise. Stress echocardiogram. The resting echocardiogram was performed with Definity enhancement demonstratin g ejection fraction of 55% no wall motion abnormalities were noted the stress echocardiogram demonstrated thickening of a ll darby improved contractility with estimated ejection fraction of 70%. No wall motion abnormalities were noted. Conclusion: Exercise stress test with no EKG criteria for ischemia at a high workload. Stress echocardiogram with no criteria for ischemia. Good functional capacity. Ordering Physician: Georges^Sabrina^^^[employer] Referring Physician: Sabrina Su Performed By: Sabrina Nobles, RDCS, RVT
--- OUTSIDE RECORDS SUMMARY | 2025-06-14 09:48 | XMS RPT_ITS | CCD ---
Author Organization [facility] ion Partnership [facility] Care Team Providers Care Publication Director Name Role Phone Georges FERRY TERMINAL SUPERVISOR-C, Sabrina Primary Care Provider [phone] Georges FERRY TERMINAL SUPERVISOR-C, Sabrina Attending Provider Georges FERRY TERMINAL SUPERVISOR-C, Sabrina Primary Care Provider [phone] Loc Sheehan DO Emergency Provider GeorgesSabrina de la vega Referring Unavailable Sabrina Su Attending Unavailable Georges Sabrina Primary Care Unavailable GeorgesSabrina Primary Care Unavailable Loc Sheehan Attending Unavailable Georges, Sabrina Primary Care Unavailable Sabrina Su Attending Unavailable Problems Problem Classification Problem Date Documented Da te Episodic/Chronic Essential hypertension (1 source) Hypertensive disorder; Translations: [Essential (primary) hypertension] 03-23-2025 Chronic Nonspecific chest pain (3 sources) Chest pain; Translations: [Chest pain, unspecified] Onset: 5 03-23-2025 Episodic Other gastrointestinal disorders (1 source) History of gastroesophageal reflux disease; Translations: [Personal history of other diseases of the digestive system] 03-23-2025 Episodic Other nutritional; endocrine; and metabolic disorders (1 source) H/O: diabetes mellitus; Translations: [Personal history of other endocrine, nutritional and metabolic disease] 03-23-2025 Episodic Residual codes; unclassified (1 source) Family history of ischemic heart disease and other diseases of the circulatory system; Translations: [Family history of ischemic heart disease and other diseases of the circulatory system] Onset: 5 Episodic Results Test Name Value Interpretation Reference Range Facility Troponin T HS 2 HRon 025 Trop T High Sen < 6 Normal <=22 [facility] Comment on above: Performed By: #### L 499.0042 #### [facility] [address] [place], [place], [address] Troponin T HS 4 HRon 025 Trop T High Sen Normal <=22 [facility] Comment on above: Result Comment: Canc elled via OM: Order cancelled - Patient discharged Performed By: #### L 499.0043 #### [facility] [address] [place], [address] Troponin T.cardiac [Mass/vol ume] in Serum or Plasma by High sensitivity methodOrdered By: Loc Sheehan on 03-23-2025 Troponin T.cardiac High sensitivity method [Mass/Vol] < 6 ng/L <22 [facility] 12 Lead EKGon 03-22-2025 12 Lead EKG [facility] Cardiovascular Services [address] [place] [address] 12 Lead EKG 03/22/25 2213 MR#: [id number] Acct: [id number] Name: MATRINEZ MITCHELL Rep #: [id number] : 1975 49 From: Travis Montes MD Attending Dr: Status: DEP ER Ordering Dr: Loc Sheehan DO Date: 03/22/25 Location: ED Sex: M C Admitted: Test Reason : CP Blood Pressure : */* mmHG Vent. Rate : 69 BPM Atrial Rate : 69 BPM P-R Int : 158 ms QRS Dur : 98 ms QT Int : 416 ms P-R-T Axes : 46 -13 15 degrees QTcB Int : 445 ms Normal sinus rhythm Normal ECG Confirmed by TRAVIS MONTES ([id number]), non linear editor CHENG DURAN ([id number]) on 03/23/2025 1:49:34 PM Referred By: GAYLE Confirmed By: TRAVIS MONTES 03/23/25 1349 Date Travis Montes MD CC: FERRY TERMINAL SUPERVISOR-C Sabrina Su; Dr. Loc Sheehan DO Signed Normal [facility] Absolute lymphocyte countOrd ered By: Loc Sheehan on 03-22-2025 Lymphocytes Auto (Unsp spec) [#/Vol] 3.21 10*3/uL 0.83-4.51 [facility] Absolute neutrophil countOrd ered By: Loc Sheehan on 03-22-2025 Neutrophils (Bld) [#/Vol] 3.2 10*3/uL 2.0-7.7 [facility] Anion gap in Serum or Plasma Ordered By: Loc Sheehan on 03-22-2025 Anion gap [Moles/Vol] 15 mmol/L 5-15 [facility] Automated lymphocyte count a s percentage of total leukocytesOrdered By: Loc Sheehan on 03-22-2025 Lymphocytes/100 WBC Auto (Unsp spec) 43.7 % High 19-41 [facility] BUN/creatinine ratioOrdered By: Loc Sheehan on 03-22-2025 Urea nitrogen/Creatinine [Mass ratio] 7.9 mg/mg Low 10-20 [facility] Basic Metabolic Profile (BMP )on 03-22-2025 BUN/CRE 7.9 RATIO Low 10-20 [facility] Comment on above: Performed By: #### L 100.0100, L500.4100, L500.4050, L501.9910, L502.0250 #### [facility] [address] [place], [address] Calcium [Mass/Vol] 9.0 mg/dL Normal 7.6-11.0 [facility] Comment on above: Performed By: #### L 100.0100, L500.4100, L500.4050, L501.9910, L502.0250 #### [facility] [address] [place], [address] Chloride [Moles/Vol] 97 mmol/L Low 98-108 [facility] Comment on above: Performed By: #### L 100.0100, L500.4100, L500.4050, L501.9910, L502.0250 #### [facility] [address] [place], [address] CO2 [Moles/Vol] 22.5 mmol/L Normal 21.0-32.0 [facility] Comment on above: Performed By: #### L 100.0100, L500.4100, L500.4050, L501.9910, L502.0250 #### [facility] [address] [place], [address] Creatinine [Mass/Vol] 0.72 mg/dL Normal 0.70-1.20 [facility] Comment on above: Performed By: #### L 100.0100, L500.4100, L500.4050, L501.9910, L502.0250 #### [facility] [address] [place], [address] ECRCL 160.33 ml/min Normal 50-250 [facility] Comment on above: Performed By: #### L 100.0100, L500.4100, L500.4050, L501.9910, L502.0250 #### [facility] [address] [place], [address] GAP 15 Normal 5-15 [facility] Comment on above: Performed By: #### L 100.0100, L500.4100, L500.4050, L501.9910, L502.0250 #### [facility] [address] [place], [address] GFR/1.73 sq M.predicted among non-blacks MDRD (S/P/Bld) [Vol rate/Area] 112 mL/min/{1.73_m2} Normal >60 [facility] Comment on above: Result Comment: mL/m in/1.73m2 CKD-EPI Creatinine Equation (2020) Performed By: #### L 100.0100, L500.4100, L500.4050, L501.9910, L502.0250 #### [facility] [address] [place], [address] Glucose [Mass/Vol] 219 mg/dL High 70-99 [facility] Comment on above: Performed By: #### L 100.0100, L500.4100, L500.4050, L501.9910, L502.0250 #### [facility] [address] [place], [address] Potassium [Moles/Vol] 3.7 mmol/L Normal 3.3-5.1 [facility] Comment on above: Performed By: #### L 100.0100, L500.4100, L500.4050, L501.9910, L502.0250 #### [facility] [address] [place], [address] Sodium [Moles/Vol] 135 mmol/L Normal 133-145 [facility] Comment on above: Performed By: #### L 100.0100, L500.4100, L500.4050, L501.9910, L502.0250 #### [facility] [address] [place], [address] Urea nitrogen [Mass/Vol] 6 mg/dL Normal 4-19 [facility] Comment on above: Performed By: #### L 100.0100, L500.4100, L500.4050, L501.9910, L502.0250 #### [facility] [address] [place], [address] Basophil percentageOrdered B y: Loc Sheehan on 03-22-2025 Basophils/100 WBC (Bld) 0.5 % 0-1 [facility] CBC W/Diff, Automatedon 02-26 Absolute Lymph 3.21 X10 3/uL Normal 0.83-4.51 [facility] Comment on above: Performed By: #### L 100.0100, L500.4100, L500.4050, L501.9910, L502.0250 #### [facility] [address] [place], [address] Absolute Neut 3.2 X10 3/uL Normal 2.0-7.7 [facility] Comment on above: Performed By: #### L 100.0100, L500.4100, L500.4050, L501.9910, L502.0250 #### [facility] [address] [place], [address] Basophils/100 WBC (Bld) 0.5 % Normal 0-1 [facility] Comment on above: Performed By: #### L 100.0100, L500.4100, L500.4050, L501.9910, L502.0250 #### [facility] [address] [place], [address] Eosinophils/100 WBC (Bld) 2.7 % Normal 0-5 [facility] Comment on above: Performed By: #### L 100.0100, L500.4100, L500.4050, L501.9910, L502.0250 #### [facility] [address] [place], [address] Erythrocyte distribution width (RBC) [Ratio] 11.8 % Normal 11.6-14.6 [facility] Comment on above: Performed By: #### L 100.0100, L500.4100, L500.4050, L501.9910, L502.0250 #### [facility] [address] [place], [address] Hematocrit (Bld) [Volume fraction] 41.0 % Normal 40-54 [facility] Comment on above: Performed By: #### L 100.0100, L500.4100, L500.4050, L501.9910, L502.0250 #### [facility] [address] [place], [address] Hemoglobin (Bld) [Mass/Vol] 14.6 g/dL Normal 13.0-16.5 [facility] Comment on above: Performed By: #### L 100.0100, L500.4100, L500.4050, L501.9910, L502.0250 #### [facility] [address] [place], [address] IG% 0.400 Normal 0.0-0.9 [facility] Comment on above: Result Comment: IG% - Immature Granulocytes (promyelocytes, myelocytes and metamyelocytes) > 1% indicates that a LEFT SHIFT is Present. Performed By: #### L 100.0100, L500.4100, L500.4050, L501.9910, L502.0250 #### [facility] [address] [place], [address] Lymphocytes/100 WBC (Bld) 43.7 % High 19-41 [facility] Comment on above: Performed By: #### L 100.0100, L500.4100, L500.4050, L501.9910, L502.0250 #### [facility] [address] [place], [address] MCH (RBC) [Entitic mass] 32.6 pg High 27.0-32.0 [facility] Comment on above: Performed By: #### L 100.0100, L500.4100, L500.4050, L501.9910, L502.0250 #### [facility] [address] [place], [address] MCHC (RBC) [Mass/Vol] 35.6 g/dL Normal 32-36 [facility] Comment on above: Performed By: #### L 100.0100, L500.4100, L500.4050, L501.9910, L502.0250 #### [facility] [address] [place], [address] MCV (RBC) [Entitic vol] 91.5 fL Normal 80-94 [facility] Comment on above: Performed By: #### L 100.0100, L500.4100, L500.4050, L501.9910, L502.0250 #### [facility] [address] [place], [address] Monocytes/100 WBC (Bld) 9.4 % Normal 0-10 [facility] Comment on above: Performed By: #### L 100.0100, L500.4100, L500.4050, L501.9910, L502.0250 #### [facility] [address] [place], [address] Neutrophils/100 WBC (Bld) 43.3 % Low 47-70 [facility] Comment on above: Performed By: #### L 100.0100, L500.4100, L500.4050, L501.9910, L502.0250 #### [facility] [address] [place], [address] Nucleated RBC (Bld) [#/Vol] 0 10*3/uL Normal 0-5 [facility] Comment on above: Performed By: #### L 100.0100, L500.4100, L500.4050, L501.9910, L502.0250 #### [facility] [address] [place], [address] Platelet mean volume (Bld) [Entitic vol] 9.4 fL Normal 6.2-12.0 [facility] Comment on above: Performed By: #### L 100.0100, L500.4100, L500.4050, L501.9910, L502.0250 #### [facility] [address] [place], [address] Platelets (Bld) [#/Vol] 228 10*3/uL Normal 150-450 [facility] Comment on above: Performed By: #### L 100.0100, L500.4100, L500.4050, L501.9910, L502.0250 #### [facility] [address] [place], [address] RBC (Bld) [#/Vol] 4.48 10*6/uL Low 4.6-6.2 [facility] Comment on above: Performed By: #### L 100.0100, L500.4100, L500.4050, L501.9910, L502.0250 #### [facility] [address], [address] RDW SD 39.5 fl Normal 35.1-43.9 [facility] Comment on above: Performed By: #### L 100.0100, L500.4100, L500.4050, L501.9910, L502.0250 #### [facility] [address] [place], [address] WBC (Bld) [#/Vol] 7.3 10*3/uL Normal 4.4-11.0 [facility] Comment on above: Performed By: #### L 100.0100, L500.4100, L500.4050, L501.9910, L502.0250 #### [facility] [address] [place], [address] Carbon dioxide, total [Moles /volume] in Central venous bloodOrdered By: Loc Sheehan on 03-22-2025 CO2 [Moles/Vol] 22.5 mmol/L 21.0-32.0 [facility] Chest PA and Lateralon 03-22 Chest PA and Lateral [facility] Imaging Services [address] [place] [address] Chest PA and Lateral MR#: [id number] Acct: [id number] Name: MARTINEZ MITCHELL Rep #: [id number] : 1975 M 49 From: Tommie Griffin MD PCP: AMIRA Diego Status: REG ER Study: Chest PA and Lateral Date of Exam: 03/22/25 Exam# [id number] Ordering Dr: Loc Sheehan DO PROCEDURE: CHEST PA AND LATERAL 03/22/2025 REASON FOR EXAM: CHEST PAIN TECHNIQUE: CHEST PA AND LATERAL FINDINGS: The heart is normal in size. The lungs are clear. No acute osseous abnormalities. RAD/Chest PA and Lateral IMPRESSION: NO ACUTE FINDINGS. Reading Location: [facility] CC: FERRY TERMINAL SUPERVISOR-C Sabrina Su; Dr. Loc Sheehan DO Java Solutions Architect: Signed Normal [facility] Chloride assayOrdered By: Jorge Sheehan on 03-22-2025 Chloride [Moles/Vol] 97 mmol/L Low 98-108 [facility] Emergency Department Summary on 03-22-2025 Emergency Department Summary [facility] Medical Records Department [address] [place] [address] Emergency Department Summary 03/22/25 MR#: [id number] Acct: [id number] Name: MARTINEZ MITCHELL Rep #: [id number] : 1975 49 From: Loc Sheehan DO PCP: AMIRA Diego Status:REG ER Location: ED ADDENDUM by Dr. Alvin Love MD on 03/23/25 at 0203 Patient checked out to me for delta troponin, second troponin measurement was also less than 6, there were 2 negative troponins, patient stable for discharge home with Dr. Sheehan's discharge instructions as above. Discussed with patient he is doing well his pressures down to 133/85 and he has no questions. 03/23/25 0203 Cosigner Signature (if applicable): cc: FERRY TERMINAL SUPERVISOR-C Sabrina Su * Signed HPI History of Present Illness Chief Complaint: Chest Pain Narrative Narrative: Patient is a 49-year-old male with past medical history of diabetes, hypertension, GERD, hyperlipidemia who presented to the emergency department the chief complaint of chest pain. States that he has had chest pain on and off for about 2 days now. He states that nothing makes this better or worse. He states that if he exerts himself his pain did not worsen. He states that he has not had a stress test or heart cath. He states that he had a burning sensation on the left side of his chest tonight which was different than what he had been experiencing the past 2 days prompting him to come here for further evaluation and management [facility] Medical History Hyperlipemia GERD (gastroesophageal reflux disease) Anxiety Diabetes mellitus Hypertension Allergy/AdvReac Type Severity Reaction Status Date / Time No Known Allergies Allergy Verified 03/22/25 22:09 Social History Smoking Status: Current every day smoker tobacco type: cigarettes ROS ROS ED ROS Narrative Constitutional: Denies any fevers or chills Eyes: Double vision Cardiovascular: Complains of chest pain as noted above denies palpitations Respiratory: Denies shortness of breath Abdomen: Denies nausea vomiting Neurological: Denies numbness, tingling Musculoskeletal: Denies back pain Skin: Denies any rashes or lesions EXAM Physical Exam Narrative Exam Narrative: General: Patient was lying in bed rest comfortably did not appear to be acute distress Head: Atraumatic, normocephalic Eyes: PERRL bilateral, EOMI Black, no conjunctival injection noted Neck: Soft, supple, trachea midline Cardiovascular: Regular rate and rhythm Respiratory: Clear to auscultation bilaterally Abdomen: Soft, nondistended, no tenderness to palpation Extremities: +5/5 strength noted in the bilateral lower extremities, radial pulses +2/4 and about extremities, no pedal edema exam Neurological: Patient follow commands knew that he was at [facility] year is 2024 Skin: Warm, dry, intact no rashes or lesions noted Const Vital Signs: 03/22/25 22:08 03/22/25 22:13 03/22/25 22:16 Temperature 98.7 F Temperature Source Oral Pulse Rate 74 Respiratory Rate 16 Respiratory Effort Normal Non-Labored Respiratory Pattern Normal Blood Pressure 171/101 H Blood Pressure Mean 124 Pulse Ox 100 97 Oxygen Delivery Method Room Air Room Air 03/22/25 23:05 03/22/25 23:16 Temperature 98 F Temperature Source Pulse Rate 69 68 Respiratory Rate 18 18 Respiratory Effort Respiratory Pattern Blood Pressure 130/85 H 128/87 H Blood Pressure Mean 100 100 Pulse Ox 97 97 Oxygen Delivery Method Room Air MDM MDM MDM Narrative Medical decision making narrative: Patient is a 49-year-old male who presented to the emergency department with a chief complaint of chest pain. On the differential diagnosis includes but not into ACS, pneumonia, pneumothorax, GERD, anxiety. Once the workup is obtained reviewed he will be reevaluated. Patient CBC reviewed showed no evidence of cytosis white blood count was noted to be Patient's CBC reviewed showed no evidence leukocytosis white blood count was 7.3, he was 14.6, platelet count of 228. Patient sodium is 135, potassium of 2.7, creatinine normal at 0.72. Patient troponin was less than 6 with delta troponin pending. Patient EKG reviewed which showed sinus rhythm rate of 69 bpm. Patient chest x-ray reviewed by myself by radiology showed no acute findings. On reevaluation patient he is feeling better. Patient was advised that he needs to keep a blood pressure log at home and take this to his doctor for their review to see if they need to make any medication adjustments as he was hypertensive when he arrived here despite taking his medications on a regular basis. He is advised that he should obtain stress testing (more content not included)... Normal [facility] Eosinophil percentageOrdered By: Loc Sheehan on 03-22-2025 Eosinophils/100 WBC (Bld) 2.7 % 0-5 [facility] Erythrocyte distribution wid th ratioOrdered By: Loc Sheehan on 03-22-2025 Erythrocyte distribution width (RBC) [Ratio] 11.8 % 11.6-14.6 [facility] Erythrocyte distribution wid th standard deviationOrdered By: Loc Sheehan on 03-22-2025 Erythrocyte distribution width (RBC) [Ratio] 39.5 fl 35.1-43.9 [facility] Glomerular filtration rate ( GFR) estimation/1.73 sq m using serum, plasma, or whole bOrdered By: Loc Sheehan on 03-22-2025 GFR/1.73 sq M.predicted among non-blacks MDRD (S/P/Bld) [Vol rate/Area] 112 mL/min/{1.73_m2} >60 [facility] Comment on above: mL/min/1.73m2 CKD-EP I Creatinine Equation (2020) Hematocrit Auto (Bld) [Volum e fraction]Ordered By: Loc Sheehan on 03-22-2025 Hematocrit (Bld) [Volume fraction] 41.0 % 40-54 [facility] Hemoglobin measurementOrdere d By: Loc Sheehan on 03-22-2025 Hemoglobin (Bld) [Mass/Vol] 14.6 g/dL 13.0-16.5 [facility] Immature granulocytes/100 WB C Auto (Bld)Ordered By: Loc Sheehan on 03-22-2025 Immature granulocytes/100 WBC (Bld) 0.400 % 0.0-0.9 [facility] Comment on above: IG% - Immature Granu locytes (promyelocytes, myelocytes and metamyelocytes) > 1% indicates that a LEFT SHIFT is Present. L501.4021on 03-22-2025 Trop T High Sen < 6 Normal <=22 [facility] Comment on above: Performed By: #### L 100.0100, L500.4100, L500.4050, L501.9910, L502.0250 #### [facility] [place], [address] MCV (mean corpuscular volume ) determinationOrdered By: Loc Sheehan on 03-22-2025 MCV (RBC) [Entitic vol] 91.5 fL 80-94 [facility] Mean corpuscular hemoglobin (MCH) determinationOrdered By: Loc Sheehan on 03-22-2025 MCH (RBC) [Entitic mass] 32.6 pg High 27.0-32.0 [facility] Mean corpuscular hemoglobin concentration (MCHC) determinationOrdered By: Loc Sheehan on 03-22-2025 MCHC (RBC) [Mass/Vol] 35.6 g/dL 32-36 [facility] Mean platelet volume determi nationOrdered By: Loc Sheehan on 03-22-2025 Platelet mean volume (Bld) [Entitic vol] 9.4 fL 6.2-12.0 [facility] Monocyte percentageOrdered B y: Loc Sheehan on 03-22-2025 Monocytes/100 WBC (Bld) 9.4 % 0-10 [facility] Neutrophil percentageOrdered By: Loc Sheehan on 03-22-2025 Neutrophils/100 WBC (Bld) 43.3 % Low 47-70 [facility] Nucleated red blood cell per centageOrdered By: Loc Sheehan on 03-22-2025 Nucleated RBC/100 WBC (Bld) [Ratio] 0 % 0-5 [facility] Platelet countOrdered By: Jorge Sheehan on 03-22-2025 Platelets (Bld) [#/Vol] 228 10*3/uL 150-450 [facility] Potassium measurement (mass/ volume)Ordered By: Loc Sheehan on 03-22-2025 Potassium (Unsp spec) [Mass/Vol] 3.7 mmol/L 3.3-5.1 [facility] RBC Auto (Bld) [#/Vol]Ordere d By: Loc Sheehan on 03-22-2025 RBC (Bld) [#/Vol] 4.48 10*6/uL Low 4.6-6.2 [facility] Serum creatinine measurement (mass/volume)Ordered By: Loc Sheehan on 03-22-2025 Creatinine [Mass/Vol] 0.72 mg/dL 0.70-1.20 [facility] Serum glucose measurement (m ass/volume)Ordered By: Loc Sheehan on 03-22-2025 Glucose [Mass/Vol] 219 mg/dL High 70-99 [facility] Serum or plasma calcium maryann urement (mass/volume)Ordered By: Loc Sheehan on 03-22-2025 Calcium [Mass/Vol] 9.0 mg/dL 7.6-11.0 [facility] Serum or plasma urea nitroge n measurement (mass/volume)Ordered By: Loc Sheehan on 03-22-2025 Urea nitrogen [Mass/Vol] 6 mg/dL 4-19 [facility] Sodium levelOrdered By: Xenia Sheehan on 03-22-2025 Sodium [Moles/Vol] 135 mmol/L 133-145 [facility] Troponin T.cardiac [Mass/vol ume] in Serum or Plasma by High sensitivity methodOrdered By: Loc Sheehan on 03-22-2025 Troponin T.cardiac High sensitivity method [Mass/Vol] < 6 ng/L <22 [facility] White blood cell (WBC) count Ordered By: Loc Sheehan on 03-22-2025 WBC (Bld) [#/Vol] 7.3 10*3/uL 4.4-11.0 [facility] Microalb:Creat Ratio,Random URon 01-13-2025 MALB:CREAT 60.0 mg/g CRE Normal [facility] Comment on above: Result Comment: AMENDED REPORT 01/13/25 1052 MALB:CREAT previously reported as: 600.0 mg/g CRE Performed By: #### L 100.0100, L500.4100, L500.4050, L501.9910, L502.0250 #### [facility] [address] [place], [place], [id number] Absolute neutrophil countOrd ered By: Sabrina Su on 11-03-2024 Neutrophils (Bld) [#/Vol] 5.1 10*3/uL 2.0-7.7 [facility] Albumin DL <= 20 mg/L (U) [M ass/Vol]Ordered By: Sabrina Su on 11-03-2024 Urine Random Microalbumin 66.6 mg/L NO RANGE E [facility] Anion gap in Serum or Plasma Ordered By: Sabrina Su on 11-03-2024 Anion gap [Moles/Vol] 12 mmol/L 5-15 [facility] BUN/creatinine ratioOrdered By: Sabrina Su on 11-03-2024 Urea nitrogen/Creatinine [Mass ratio] 9.8 mg/mg Low 10-20 [facility] Basophil percentageOrdered B y: Sabrina Su on 11-03-2024 Basophils/100 WBC (Bld) 0.9 % 0-1 [facility] Bilirubin, totalOrdered By: Sabrina Su on 11-03-2024 Bilirubin [Mass/Vol] 0.53 mg/dL 0.00-1.30 [facility] CBC W/Diff, Automatedon 04-0 Absolute Lymph 1.96 X10 3/uL Normal 0.83-4.51 [facility] [facility] Comment on above: Performed By: #### L 100.0100, L500.4100, L500.4050, L501.9910, L502.0250 #### [facility] [address] [place], [address] Absolute Neut 5.1 X10 3/uL Normal 2.0-7.7 [facility] Comment on above: Performed By: #### L 100.0100, L500.4100, L500.4050, L501.9910, L502.0250 #### [facility] [address] [place], [address] Basophils/100 WBC (Bld) 0.9 % Normal 0-1 [facility] Comment on above: Performed By: #### L 100.0100, L500.4100, L500.4050, L501.9910, L502.0250 #### [facility] [address] [place], [address] Eosinophils/100 WBC (Bld) 2.6 % Normal 0-5 [facility] Comment on above: Performed By: #### L 100.0100, L500.4100, L500.4050, L501.9910, L502.0250 #### [facility] [address] [place], [address] Erythrocyte distribution width (RBC) [Ratio] 12.6 % Normal 11.6-14.6 [facility] Comment on above: Performed By: #### L 100.0100, L500.4100, L500.4050, L501.9910, L502.0250 #### [facility] [address] [place], [address] Hematocrit (Bld) [Volume fraction] 42.8 % Normal 40-54 [facility] Comment on above: Performed By: #### L 100.0100, L500.4100, L500.4050, L501.9910, L502.0250 #### [facility] [address] [place], [address] Hemoglobin (Bld) [Mass/Vol] 15.0 g/dL Normal 13.0-16.5 [facility] Comment on above: Performed By: #### L 100.0100, L500.4100, L500.4050, L501.9910, L502.0250 #### [facility] [address] [place], [address] IG% 0.400 Normal 0.0-0.9 [facility] Comment on above: Result Comment: IG% - Immature Granulocytes (promyelocytes, myelocytes and metamyelocytes) > 1% indicates that a LEFT SHIFT is Present. Performed By: #### L 100.0100, L500.4100, L500.4050, L501.9910, L502.0250 #### [facility] [address] [place], [address] Lymphocytes/100 WBC (Bld) 24.5 % Normal 19-41 [facility] Comment on above: Performed By: #### L 100.0100, L500.4100, L500.4050, L501.9910, L502.0250 #### [facility] [address] [place], [address] MCH (RBC) [Entitic mass] 32.1 pg High 27.0-32.0 [facility] Comment on above: Performed By: #### L 100.0100, L500.4100, L500.4050, L501.9910, L502.0250 #### [facility] [address] [place], [address] MCHC (RBC) [Mass/Vol] 35.0 g/dL Normal 32-36 [facility] Comment on above: Performed By: #### L 100.0100, L500.4100, L500.4050, L501.9910, L502.0250 #### [facility] [address] [place], [address] MCV (RBC) [Entitic vol] 91.5 fL Normal 80-94 [facility] Comment on above: Performed By: #### L 100.0100, L500.4100, L500.4050, L501.9910, L502.0250 #### [facility] [address] [place], [address] Monocytes/100 WBC (Bld) 7.6 % Normal 0-10 [facility] Comment on above: Performed By: #### L 100.0100, L500.4100, L500.4050, L501.9910, L502.0250 #### [facility] [address] [place], [address] Neutrophils/100 WBC (Bld) 64.0 % Normal 47-70 [facility] Comment on above: Performed By: #### L 100.0100, L500.4100, L500.4050, L501.9910, L502.0250 #### [facility] [address] [place], [address] Nucleated RBC (Bld) [#/Vol] 0 10*3/uL Normal 0-5 [facility] Comment on above: Performed By: #### L 100.0100, L500.4100, L500.4050, L501.9910, L502.0250 #### [facility] [address] [place], [address] Platelet mean volume (Bld) [Entitic vol] 10.0 fL Normal 6.2-12.0 [facility] Comment on above: Performed By: #### L 100.0100, L500.4100, L500.4050, L501.9910, L502.0250 #### [facility] [address] [place], [address] Platelets (Bld) [#/Vol] 278 10*3/uL Normal 150-450 [facility] Comment on above: Performed By: #### L 100.0100, L500.4100, L500.4050, L501.9910, L502.0250 #### [facility] [address] [place], [address] RBC (Bld) [#/Vol] 4.68 10*6/uL Normal 4.6-6.2 [facility] Comment on above: Performed By: #### L 100.0100, L500.4100, L500.4050, L501.9910, L502.0250 #### [facility] [address] [place], [address] RDW SD 41.6 fl Normal 35.1-43.9 [facility] Comment on above: Performed By: #### L 100.0100, L500.4100, L500.4050, L501.9910, L502.0250 #### [facility] [address] [place], [address] WBC (Bld) [#/Vol] 8.0 10*3/uL Normal 4.4-11.0 [facility] Comment on above: Performed By: #### L 100.0100, L500.4100, L500.4050, L501.9910, L502.0250 #### [facility] [address] [place], [address] Calculated very low density lipoprotein (VLDL) cholesterol measurementOrdered By: Sabrina Su on 11-03-2024 VLDL Cholesterol 35 mg/dL 5-40 [facility] Carbon dioxide, total [Moles /volume] in Central venous bloodOrdered By: Sabrina Su on 11-03-2024 CO2 [Moles/Vol] 22.8 mmol/L 21.0-32.0 [facility] Chloride assayOrdered By: Ra maria de jesus Su on 11-03-2024 Chloride [Moles/Vol] 101 mmol/L 98-108 [facility] Comprehensive Metabolic Prof ilon 11-03-2024 Albumin [Mass/Vol] 4.5 g/dL Normal 3.5-5.0 [facility] Comment on above: Performed By: #### L 100.0100, L500.4100, L500.4050, L501.9910, L502.0250 #### [facility] [address] [place], [address] Albumin/Globulin [Mass ratio] 1.5 {ratio} Normal 0.9-2.4 [facility] Comment on above: Performed By: #### L 100.0100, L500.4100, L500.4050, L501.9910, L502.0250 #### [facility] [address] [place], [address] ALK PHOS 102 U/L Normal 40-129 [facility] Comment on above: Performed By: #### L 100.0100, L500.4100, L500.4050, L501.9910, L502.0250 #### [facility] [address] [place], [address] ALT [Catalytic activity/Vol] 53 U/L High <=46 [facility] Comment on above: Performed By: #### L 100.0100, L500.4100, L500.4050, L501.9910, L502.0250 #### [facility] [address] [place], [address] AST [Catalytic activity/Vol] 52 U/L High <=37 [facility] Comment on above: Performed By: #### L 100.0100, L500.4100, L500.4050, L501.9910, L502.0250 #### [facility] [address] [place], [address] Bilirubin [Mass/Vol] 0.53 mg/dL Normal 0.00-1.30 [facility] Comment on above: Performed By: #### L 100.0100, L500.4100, L500.4050, L501.9910, L502.0250 #### [facility] [address] [place], [address] BUN/CRE 9.8 RATIO Low 10-20 [facility] Comment on above: Performed By: #### L 100.0100, L500.4100, L500.4050, L501.9910, L502.0250 #### [facility] [address] [place], [address] Calcium [Mass/Vol] 9.3 mg/dL Normal 7.6-11.0 [facility] Comment on above: Performed By: #### L 100.0100, L500.4100, L500.4050, L501.9910, L502.0250 #### [facility] [address] [place], [address] Chloride [Moles/Vol] 101 mmol/L Normal 98-108 [facility] Comment on above: Performed By: #### L 100.0100, L500.4100, L500.4050, L501.9910, L502.0250 #### [facility] [address] [place], [address] CO2 [Moles/Vol] 22.8 mmol/L Normal 21.0-32.0 [facility] Comment on above: Performed By: #### L 100.0100, L500.4100, L500.4050, L501.9910, L502.0250 #### [facility] [address] [place], [address] Creatinine [Mass/Vol] 0.71 mg/dL Normal 0.70-1.20 [facility] Comment on above: Performed By: #### L 100.0100, L500.4100, L500.4050, L501.9910, L502.0250 #### [facility] [address] [place], [address] GAP 12 Normal 5-15 [facility] Comment on above: Performed By: #### L 100.0100, L500.4100, L500.4050, L501.9910, L502.0250 #### [facility] [address] [place], [address] GFR/1.73 sq M.predicted among non-blacks MDRD (S/P/Bld) [Vol rate/Area] 113 mL/min/{1.73_m2} Normal >60 [facility] Comment on above: Result Comment: mL/m in/1.73m2 CKD-EPI Creatinine Equation (2020) Performed By: #### L 100.0100, L500.4100, L500.4050, L501.9910, L502.0250 #### [facility] [address] [place], [address] Globulin (S) [Mass/Vol] 3.0 g/dL Normal 2.2-4.2 [facility] Comment on above: Performed By: #### L 100.0100, L500.4100, L500.4050, L501.9910, L502.0250 #### [facility] [address] [place], [address] Glucose [Mass/Vol] 180 mg/dL High 70-99 [facility] Comment on above: Performed By: #### L 100.0100, L500.4100, L500.4050, L501.9910, L502.0250 #### [facility] [address] [place], [address] Potassium [Moles/Vol] 4.4 mmol/L Normal 3.3-5.1 [facility] Comment on above: Performed By: #### L 100.0100, L500.4100, L500.4050, L501.9910, L502.0250 #### [facility] [address] [place], [address] Sodium [Moles/Vol] 136 mmol/L Normal 133-145 [facility] Comment on above: Performed By: #### L 100.0100, L500.4100, L500.4050, L501.9910, L502.0250 #### [facility] [address] [place], [address] T PROT 7.5 g/dL Normal 5.9-8.4 [facility] Comment on above: Performed By: #### L 100.0100, L500.4100, L500.4050, L501.9910, L502.0250 #### [facility] [address] [place], [address] Urea nitrogen [Mass/Vol] 7 mg/dL Normal 4-19 [facility] Comment on above: Performed By: #### L 100.0100, L500.4100, L500.4050, L501.9910, L502.0250 #### [facility] [address] [place], [address] Creatinine Unsp time (U) [Ma ss/Vol]Ordered By: Sabrina Su on 11-03-2024 Creatinine (U) [Mass/Vol] 111.00 mg/dL 39.00-25 9.00 [facility] Eosinophil percentageOrdered By: Sabrina Su on 11-03-2024 Eosinophils/100 WBC (Bld) 2.6 % 0-5 [facility] Erythrocyte distribution wid th (RBC) [Ratio]Ordered By: Sabrina Su on 11-03-2024 Erythrocyte distribution width (RBC) [Entitic vol] 41.6 fL 35.1-43.9 [facility] Erythrocyte distribution wid th ratioOrdered By: Sabrinadeanne Su on 11-03-2024 Erythrocyte distribution width (RBC) [Ratio] 12.6 % 11.6-14.6 [facility] GFR/1.73 sq M.predicted lynn g non-blacks MDRD (S/P/Bld) [Vol rate/Area]Ordered By: Sabrina Su on 11-03-2024 Estimated GFR (MDRD) Non-Af Amer 113 >60 [facility] Comment on above: mL/min/1.73m2 CKD-EP I Creatinine Equation (2020) Hematocrit Auto (Bld) [Volum e fraction]Ordered By: Sabrina Su on 11-03-2024 Hematocrit (Bld) [Volume fraction] 42.8 % 40-54 [facility] Hemoglobin measurementOrdere d By: Sabrina Su on 11-03-2024 Hemoglobin (Bld) [Mass/Vol] 15.0 g/dL 13.0-16.5 [facility] Immature granulocytes/100 WB C Auto (Bld)Ordered By: Sabrina Su on 11-03-2024 Immature granulocytes/100 WBC (Bld) 0.400 % 0.0-0.9 [facility] Comment on above: IG% - Immature Granu locytes (promyelocytes, myelocytes and metamyelocytes) > 1% indicates that a LEFT SHIFT is Present. LDL calc ser/plasOrdered By: Sabrina Su on 11-03-2024 LDL Cholesterol, Calculated 37 mg/dL [facility] Comment on above: Jzptcyfjsr=265-157 m g/dL & Higher Rehi=907 mg/dL or greater Laboratory - Chemistry and C hemistry - challengeOrdered By: Sabrina Su on 11-03-2024 AST [Catalytic activity/Vol] 52 U/L High <38 [facility] Lipid Profileon 11-03-2024 CHOL:HDL 2.67 Normal [facility] Comment on above: Performed By: #### L 100.0100, L500.4100, L500.4050, L501.9910, L502.0250 #### [facility] [address] [place], [address] Cholesterol [Mass/Vol] 115 mg/dL Normal <=200 [facility] Comment on above: Result Comment: Chol esterol level, Desirable <200 mg/dL Borderline high cholesterol 200-239 mg/dL High cholesterol >=240 mg/dL Recommendations of the NCEP Adult Treatment Panel for the following risk-cutoff thresholds for the [place] population. Performed By: #### L 100.0100, L500.4100, L500.4050, L501.9910, L502.0250 #### [facility] [address] [place], [address] Cholesterol in HDL [Mass/Vol] 43 mg/dL Normal [facility] Comment on above: Result Comment: [place] on[place] Cholesterol Education Program (NCEP) guidelines: <40 mg/dL: Low HDL-cholesterol (major risk factor for CHD) >= 60 mg/dL: High HDL-cholesterol (negative risk factor for CHD) HDL-cholesterol is affected by a number of factors, e.g. smoking, exercise, hormones, sex and age. Performed By: #### L 100.0100, L500.4100, L500.4050, L501.9910, L502.0250 #### [facility] [address] [place], [address] Cholesterol in LDL [Mass/Vol] 37 mg/dL Normal [facility] Comment on above: Result Comment: Bord zqhuri=670-900 mg/dL Higher Fjjm=133 mg/dL or greater Performed By: #### L 100.0100, L500.4100, L500.4050, L501.9910, L502.0250 #### [facility] [address] [place], [address] Cholesterol in VLDL [Mass/Vol] 35 mg/dL Normal 5-40 [facility] Comment on above: Performed By: #### L 100.0100, L500.4100, L500.4050, L501.9910, L502.0250 #### [facility] [address] [place], [address] Triglyceride [Mass/Vol] 173 mg/dL Normal [facility] Comment on above: Result Comment: The drugs N-Acetylcysteine and Metamizole may falsely depress this assay. Normal range: <150 mg/dL Borderline High: 150-199 mg/dL High: 200-499 mg/dL Very High: >500 mg/dL Performed By: #### L 100.0100, L500.4100, L500.4050, L501.9910, L502.0250 #### [facility] [address] [place], [address] Lymphocytes Auto (Unsp spec) [#/Vol]Ordered By: Sabrina Su on 11-03-2024 Lymphocytes (Bld) [#/Vol] 1.96 10*3/uL 0.83-4.5 1 [facility] Lymphocytes/100 WBC Auto (Un sp spec)Ordered By: Sabrina Su on 11-03-2024 Lymphocytes/100 WBC (Bld) 24.5 % 19-41 [facility] MCV (mean corpuscular volume ) determinationOrdered By: Sabrinadeanne Su on 11-03-2024 MCV (RBC) [Entitic vol] 91.5 fL 80-94 [facility] Mean corpuscular hemoglobin (MCH) determinationOrdered By: [place] Georges on 11-03-2024 MCH (RBC) [Entitic mass] 32.1 pg High 27.0-32.0 [facility] Mean corpuscular hemoglobin concentration (MCHC) determinationOrdered By: Sabrinadeanne Su on 11-03-2024 MCHC (RBC) [Mass/Vol] 35.0 g/dL 32-36 [facility] Mean platelet volume determi nationOrdered By: Sabrinadeanne Su on 11-03-2024 Platelet mean volume (Bld) [Entitic vol] 10.0 fL 6.2-12.0 [facility] Microalbumin/creat ratio urO rdered By: Sabrinadeanne Su on 11-03-2024 Urine Microalbumin/Creatinine Ratio 600.0 mg/g CRE [facility] Monocyte percentageOrdered B y: Sabrina Su on 11-03-2024 Monocytes/100 WBC (Bld) 7.6 % 0-10 [facility] Neutrophil percentageOrdered By: Sabrinadeanne Su on 11-03-2024 Neutrophils/100 WBC (Bld) 64.0 % 47-70 [facility] Nucleated red blood cell per centageOrdered By: Sabrina Su on 11-03-2024 Nucleated RBC/100 WBC (Bld) [Ratio] 0 % 0-5 [facility] PSA, total screeningOrdered By: Sabrina Su on 11-03-2024 Prostate Specific Antigen Screen 0.31 ng/mL 0.02-4.00 [facility] Comment on above: This test was perfor med using the [employer] tPSA method. Measured values of a patient sample can vary depending on the testing procedure used. PSA values determined on patient samples by different testing procedures cannot be used interchangeably. If there is a change in PSA assays while monitoring therapy, sequential testing should be performed to confirm baseline values. PSA,Total - Annual Screenon 11-03-2024 PSA,TOT SCREEN 0.31 ng/mL Normal 0.02-4.00 [facility] Comment on above: Result Comment: This test was performed using the [employer] tPSA method. Measured values of a patient??sample can vary depending on the testing procedure used. PSA values determined on patient samples by different testing procedures cannot be used interchangeably. If there is a change in PSA assays while monitoring therapy, sequential testing should be performed to confirm baseline values. Performed By: #### L 100.0100, L500.4100, L500.4050, L501.9910, L502.0250 #### [facility] [address] [place], [address] Platelet countOrdered By: Ra maria de jesus Su on 11-03-2024 Platelets (Bld) [#/Vol] 278 10*3/uL 150-450 [facility] Potassium (Unsp spec) [Mass/ Vol]Ordered By: Sabrina Su on 11-03-2024 Potassium [Moles/Vol] 4.4 mmol/L 3.3-5.1 [facility] RBC Auto (Bld) [#/Vol]Ordere d By: Sabrina Su on 11-03-2024 RBC (Bld) [#/Vol] 4.68 10*6/uL 4.6-6.2 [facility] Screening total cholesterol/ high density lipoprotein (HDL) cholesterol ratioOrdered By: Sabrina Su on 11-03-2024 Cholesterol.total/Cholest les in HDL [Mass ratio] 2.67 {ratio} [facility] Serum creatinine measurement (mass/volume)Ordered By: Sabrina Su on 11-03-2024 Creatinine [Mass/Vol] 0.71 mg/dL 0.70-1.20 [facility] Serum globulin measurementOr dered By: Sabrina Su on 11-03-2024 Globulin (S) [Mass/Vol] 3.0 g/dL 2.2-4.2 [facility] Serum glucose measurement (m ass/volume)Ordered By: Sabrina Su on 11-03-2024 Glucose [Mass/Vol] 180 mg/dL High 70-99 [facility] Serum or plasma alanine barker otransferase (ALT) measurementOrdered By: Sabrina Su on 11-03-2024 ALT [Catalytic activity/Vol] 53 U/L High <47 [facility] Serum or plasma albumin maryann urement (mass/volume)Ordered By: Sabrina Su on 11-03-2024 Albumin [Mass/Vol] 4.5 g/dL 3.5-5.0 [facility] Serum or plasma albumin/glob ulin mass ratioOrdered By: Sabrina Su on 11-03-2024 Albumin/Globulin [Mass ratio] 1.5 {ratio} 0.9-2.4 [facility] Serum or plasma alkaline pelon sphatase measurementOrdered By: Sabrina Su 11-03-2024 ALP [Catalytic activity/Vol] 102 U/L 40-129 [facility] Serum or plasma calcium maryann urement (mass/volume)Ordered By: Sabrina Su on 11-03-2024 Calcium [Mass/Vol] 9.3 mg/dL 7.6-11.0 [facility] Serum or plasma cholesterol in HDL measurement (mass/volume)Ordered By: Sabrina Su on 11-03-2024 Cholesterol in HDL [Mass/Vol] 43 mg/dL >40 [facility] Comment on above: National Cholesterol Education Program (NCEP) guidelines:<40 mg/dL: Low HDL-cholesterol (major risk factor for CHD)>= 60 mg/dL: High HDL-cholesterol (negative risk factor for CHD)HDL-cholesterol is affected by a number of factors, e.g. smoking, exercise, hormones, sex and age. Serum or plasma cholesterol measurement (mass/volume)Ordered By: Sabrina Su on 11-03-2024 Cholesterol [Mass/Vol] 115 mg/dL <201 [facility] Comment on above: Cholesterol level, D esirable <200 mg/dLBorderline high cholesterol 200-239 mg/dLHigh cholesterol >=240 mg/dLRecommendations of the NCEP Adult Treatment Panel for the following risk-cutoff thresholds for the [place] population. Serum or plasma urea nitroge n measurement (mass/volume)Ordered By: Sabrina Su on 11-03-2024 Urea nitrogen [Mass/Vol] 7 mg/dL 4-19 [facility] Sodium levelOrdered By: Macrina Su on 11-03-2024 Sodium [Moles/Vol] 136 mmol/L 133-145 [facility] Total proteinOrdered By: Rhina Su on 11-03-2024 Protein [Mass/Vol] 7.5 g/dL 5.9-8.4 [facility] Triglycerides measurementOrd ered By: Sabrina Su on 11-03-2024 Triglyceride [Mass/Vol] 173 mg/dL <199 [facility] Comment on above: The drugs N-Acetylcy steine and Metamizole may falsely depress this assay. Normal range: <150 mg/dLBorderline High: 150-199 mg/dLHigh: 200-499 mg/dLVery High: >500 mg/dL White blood cell (WBC) count Ordered By: Sabrina Su on 11-03-2024 WBC (Bld) [#/Vol] 8.0 10*3/uL 4.4-11.0 [facility] Absolute lymphocyte countOrd ered By: Sabrina Su on 03-04-2023 Lymphocytes Auto (Unsp spec) [#/Vol] 1.47 10*3/uL 0.83-4.51 [facility] Basophil percentageOrdered B y: Sabrina Su on 03-04-2023 Basophils/100 WBC (Bld) 1.2 % 0-1 [facility] Bilirubin [Mass/Vol] 0.60 mg/dL 0.20-1.00 [facility] Comment on above: For patients on eltr ombopag therapy, use of [employer] [place] TBIL is not recommended. Chloride [Moles/Vol] 102 mmol/L 98-107 [facility] Cholesterol [Mass/Vol] 145 mg/dL <200 [facility] Comment on above: <200 mg/dL Desirable 200-240 mg/dL Borderline >240 mg/dL High Risk Eosinophils/100 WBC (Bld) 4.5 % 0-5 [facility] Glucose [Mass/Vol] 168 mg/dL 74-106 [facility] Comment on above: Fasting Glucose resu lt greater than or equal to 126 mg/dL suggests DIABETES MELLITUS per A.D.A. criteria. Neutrophils (Bld) [#/Vol] 3.6 10*3/uL 2.0-7.7 [facility] Neutrophils/100 WBC (Bld) 60.5 % 47-70 [facility] Potassium [Moles/Vol] 4.5 mmol/L 3.5-5.1 [facility] Protein [Mass/Vol] 7.3 g/dL 6.4-8.2 [facility] Sodium [Moles/Vol] 136 mmol/L 136-145 [facility] Triglyceride [Mass/Vol] 251 mg/dL <199 [facility] Comment on above: The drugs N-Acetylcy steine and Metamizole may falsely depress this assay.Serum Triglycerides Reference Interval Normal <150 mg/dL Borderline high 150 - 199 mg/dL High 200 - 499 mg/dL Very High > or = 500 mg/dL WBC (Bld) [#/Vol] 6.0 10*3/uL 4.4-11.0 [facility] Blood erythrocytes count (nu mber/volume)Ordered By: Sabrina Su on 03-04-2023 RBC (Bld) [#/Vol] 4.58 10*6/uL 4.6-6.2 [facility] Blood hemoglobin measurement (mass/volume)Ordered By: Sabrina Su on 03-04-2023 Hemoglobin (Bld) [Mass/Vol] 15.6 g/dL 13.0-16.5 [facility] Blood lymphocytes/100 leukoc ytesOrdered By: Sabrina Su on 03-04-2023 Lymphocytes/100 WBC (Bld) 24.5 % 19-41 [facility] Blood monocytes/100 leukocyt esOrdered By: Sabrinadeanne Su on 03-04-2023 Monocytes/100 WBC (Bld) 8.8 % 0-10 [facility] Blood platelet mean volumeOr dered By: Sabrinadeanne Su on 03-04-2023 Platelet mean volume (Bld) [Entitic vol] 9.9 fL 6.2-12.0 [facility] Determination of erythrocyte mean corpuscular volume (MCV)Ordered By: Sabrinadeanne Su on 03-04-2023 MCV (RBC) [Entitic vol] 99.6 fL 80-94 [facility] Hematocrit Auto (Bld) [Volum e fraction]Ordered By: [place] Georges on 03-04-2023 Hematocrit (Bld) [Volume fraction] 45.6 % 40-54 [facility] - Chemistry and C hemistry - challengeOrdered By: [facility] on 03-04-2023 ALP [Catalytic activity/Vol] 88 U/L 45-117 [facility] ALT [Catalytic activity/Vol] 42 U/L 16-61 [facility] CO2 [Moles/Vol] 30.0 mmol/L 21.0-32.0 [facility] Globulin (S) [Mass/Vol] 3.7 g/dL 2.2-4.2 [facility] Urea nitrogen/Creatinine [Mass ratio] 5.1 mg/mg 10-20 [facility] Laboratory - Hematology and Cell countsOrdered By: [facility] Healthgar on 03-04-2023 Erythrocyte distribution width (RBC) [Entitic vol] 45.1 fL 35.1-43.9 [facility] Erythrocyte distribution width (RBC) [Ratio] 12.4 % 11.6-14.6 [facility] Immature granulocytes/100 WBC (Bld) 0.500 % 0.0-0.9 [facility] Comment on above: IG% - Immature Granu locytes (promyelocytes, myelocytes and metamyelocytes) > 1% indicates that a LEFT SHIFT is Present. MCH (RBC) [Entitic mass] 34.1 pg 27.0-32.0 [facility] Nucleated RBC/100 WBC (Bld) [Ratio] 0 % 0-5 [facility] ([facility]) [Mass/Vol]Or dered By: Sabrina Su on 03-04-2023 MCHC (RBC) [Mass/Vol] 34.2 g/dL 32-36 [facility] No Panel InformationOrdered By: Sabrina Su on 03-04-2023 Estimated GFR (MDRD) Amer 136 mL/min >60 [facility] Comment on above: GFR Calc Estimated GFR (MDRD) Non-Af Amer 113 mL/min >60 [facility] Comment on above: Non- GFR Calc Prostate Specific Antigen Screen 0.52 ng/mL 0.00-4.00 [facility] Comment on above: This test was perfor med using the TPSA assay method for [employer] ([employer] chemistry system. Values obtained with differentassay methods cannot be used interchangably.When changing PSA assays in the course of monitoring apatient, additional sequential testing should be carriedout to confirm baseline values. Urine Microalbumin/Creatinine Ratio 48.0 mg/g CRE <30 [facility] Platelets bldOrdered By: Rhina Su on 03-04-2023 Platelets (Bld) [#/Vol] 298 10*3/uL 150-450 [facility] Serum or plasma albumin maryann urement (mass/volume)Ordered By: Sabrina Su on 03-04-2023 Albumin [Mass/Vol] 3.6 g/dL 3.2-5.0 [facility] Serum or plasma albumin/glob ulin mass ratioOrdered By: Sabrina Su on 03-04-2023 Albumin/Globulin [Mass ratio] 1.0 {ratio} 0.9-2.4 [facility] Serum or plasma calcium maryann urement (mass/volume)Ordered By: Sabrina Su on 03-04-2023 Calcium [Mass/Vol] 8.7 mg/dL 8.5-10.1 [facility] Serum or plasma cholesterol in HDL measurement (mass/volume)Ordered By: Sabrina Su on 03-04-2023 Cholesterol in HDL [Mass/Vol] 33 mg/dL >40 [facility] Comment on above: The drugs N-Acetylcy steine and Metamizole may falsely depress this assay. Reference Range HDL <40 mg/dL Low HDL Cholesterol HDL >or= 60 mg/dL High HDL Cholesterol Serum or plasma cholesterol in VLDL measurement (mass/volume)Ordered By: Sabrina Su on 03-04-2023 Cholesterol in VLDL [Mass/Vol] 50 mg/dL 5-40 [facility] Serum or plasma creatinine m easurement (mass/volume)Ordered By: Sabrina Su on 03-04-2023 Creatinine [Mass/Vol] 0.78 mg/dL 0.70-1.30 [facility] Comment on above: The validity of the calculated GFR & GFRAA in patients over 70 years has not been determined. Clinical correlation is essential. Serum or plasma low density lipoprotein (LDL) cholesterol measurement (mass/volume)Ordered By: Sabrina Su on 03-04-2023 Cholesterol in LDL [Mass/Vol] 62 mg/dL 0-130 [facility] Serum or plasma urea nitroge n measurement (mass/volume)Ordered By: Sabrina Su on 03-04-2023 Urea nitrogen [Mass/Vol] 4 mg/dL 7-18 [facility] Thin prep Papanicolaou smear with manual screeningOrdered By: Sabrina Su on 03-04-2023 Thin prep Papanicolaou smear with manual screening 41 U/L 15-37 [facility] Thin prep Papanicolaou smear with manual screening 4 5-15 [facility] Thin prep Papanicolaou smear with manual screening 17.0 mg/L NO RANGE EST. [facility] Urine creatinine measurement (mass/volume)Ordered By: Sabrina Su on 03-04-2023 Creatinine (U) [Mass/Vol] 35.40 mg/dL NO RANGE EST. [facility] VIDHon 06-04-2019 Vit. D 25-Hydroxy 38 ng/mL Normal [facility] ([place] Comment on above: Result Comment: Inte rpretive Values Based on Total 25(OH)D: Severe Deficiency <20 ng/mL Mild to Moderate Deficiency 20-30 ng/mL Optimum Levels 30-100 ng/mL Toxicity Possible >100 ng/mL Performed By: #### C BC, ADIFF, ANEU, A1C, GFR, TSH, CMP #### [place] [address] .Auto Diffon 06-03-2019 Ammonia (P) [Mass/Vol] 0.60 10 3/mcL Normal 0.09-1.40 [facility] ([place]) Comment on above: Performed By: #### C BC, ADIFF, ANEU, A1C, GFR, TSH, CMP #### [address] [address] Basophils (Bld) [#/Vol] 0.00 10 3/mcL Normal 0.00-0.27 [facility] ([place]) Comment on above: Performed By: #### C BC, ADIFF, ANEU, A1C, GFR, TSH, CMP #### [address] [address] Basophils/100 WBC (Bld) 0.7 % Normal 0.0-2.5 [facility] ([place] Comment on above: Performed By: #### C BC, ADIFF, ANEU, A1C, GFR, TSH, CMP #### [address] [address] Eosinophils (Bld) [#/Vol] 0.10 10 3/mcL Normal 0.00-0. 65 [facility] ([place]) Comment on above: Performed By: #### C BC, ADIFF, ANEU, A1C, GFR, TSH, CMP #### [address] [address] Eosinophils/100 WBC (Bld) 1.7 % Normal 0.0-6.0 [facility] ([place] Comment on above: Performed By: #### C BC, ADIFF, ANEU, A1C, GFR, TSH, CMP #### [address] [address] Lymphocytes (Bld) [#/Vol] 1.60 10 3/mcL Normal 0.90-4. 32 [facility] ([place]) Comment on above: Performed By: #### C BC, ADIFF, ANEU, A1C, GFR, TSH, CMP #### [address] [address] Lymphocytes/100 WBC (Bld) 22.3 % Normal 20.0-40.0 [facility] ([place] Comment on above: Performed By: #### C BC, ADIFF, ANEU, A1C, GFR, TSH, CMP #### [address] [address] Monocytes/100 WBC (Bld) 8.4 % Normal 2.0-13.0 [facility] ([place] Comment on above: Performed By: #### C BC, ADIFF, ANEU, A1C, GFR, TSH, CMP #### [address] [address] Neutrophils/100 WBC (Bld) 66.9 % Normal 50.0-75.0 [facility] ([place] Comment on above: Performed By: #### C BC, ADIFF, ANEU, A1C, GFR, TSH, CMP #### [address] [address] .GFRon 06-03-2019 GFR Non- >60 Normal [facility] ([place] Comment on above: Result Comment: GFR Population [...] ADIFF, ANEU, A1C, GFR, TSH, CMP #### [address] [address] GFR >60 Normal [facility] ([place] Comment on above: Result Comment: GFR Population [...] ADIFF, ANEU, A1C, GFR, TSH, CMP #### [place] [address] .NEUABSon 06-03-2019 Neutrophils (Bld) [#/Vol] 4.80 10 3/mcL Normal 2.25-8. 10 [facility] ([place] Comment on above: Performed By: #### C BC, ADIFF, ANEU, A1C, GFR, TSH, CMP #### [place] [address] A1Con 06-03-2019 HbA1c (Bld) [Mass fraction] 6.3 % High 4.0-6.0 [facility] ([place] Comment on above: Performed By: #### C BC, ADIFF, ANEU, A1C, GFR, TSH, CMP #### [place] [address] CBCon 06-03-2019 Erythrocyte distribution width (RBC) [Ratio] 14.2 % Normal 11.5-15.5 [facility] ([place] Comment on above: Performed By: #### C BC, ADIFF, ANEU, A1C, GFR, TSH, CMP #### [place] [address] Hematocrit (Bld) [Volume fraction] 48.9 % Normal 40.0-52.0 [facility] ([place] Comment on above: Performed By: #### C BC, ADIFF, ANEU, A1C, GFR, TSH, CMP #### [place] [address] Hemoglobin (Bld) [Mass/Vol] 16.6 G/dL Normal 13.0-17.5 [facility] ([place] Comment on above: Performed By: #### C BC, ADIFF, ANEU, A1C, GFR, TSH, CMP #### [place] [address] MCH (RBC) [Entitic mass] 33.0 pg Normal 27.0-33.0 [facility] ([place] Comment on above: Performed By: #### C BC, ADIFF, ANEU, A1C, GFR, TSH, CMP #### [address] [address] MCHC (RBC) [Mass/Vol] 34.0 G/dL Normal 32.0-36.0 [facility] ([place] Comment on above: Performed By: #### C BC, ADIFF, ANEU, A1C, GFR, TSH, CMP #### [address] [address] MCV (RBC) [Entitic vol] 97.1 fL Normal 81.0-100.0 [facility] ([place] Comment on above: Performed By: #### C BC, ADIFF, ANEU, A1C, GFR, TSH, CMP #### [address] [address] Platelet mean volume (Bld) [Entitic vol] 8.4 fL Normal 6.4-10.5 [facility] ([place] Comment on above: Performed By: #### C BC, ADIFF, ANEU, A1C, GFR, TSH, CMP #### [address] [address] Platelets (Bld) [#/Vol] 315 10 3/mcL Normal 150-450 [facility] ([place] Comment on above: Performed By: #### C BC, ADIFF, ANEU, A1C, GFR, TSH, CMP #### [address] [address] RBC (Bld) [#/Vol] 5.04 10 6/mcL Normal 4.50-6.00 [facility] ([place] Comment on above: Performed By: #### C BC, ADIFF, ANEU, A1C, GFR, TSH, CMP #### [address] [address] WBC (Bld) [#/Vol] 7.10 10 3/mcL Normal 4.50-10.80 [facility] ([place] Comment on above: Performed By: #### C BC, ADIFF, ANEU, A1C, GFR, TSH, CMP #### [address] [address] CMPon 06-03-2019 Albumin/Globulin [Mass ratio] 1.4 {ratio} Normal 0.9-1.6 [facility] ([place] Comment on above: Performed By: #### C BC, ADIFF, ANEU, A1C, GFR, TSH, CMP #### [address] [address] ALP [Catalytic activity/Vol] 75 U/L Normal 38-126 [facility] ([place] Comment on above: Performed By: #### C BC, ADIFF, ANEU, A1C, GFR, TSH, CMP #### [place] [id number] ALT [Catalytic activity/Vol] 19 U/L Normal 12-55 [facility] ([place] Comment on above: Performed By: #### C BC, ADIFF, ANEU, A1C, GFR, TSH, CMP #### [place] [address] Bili Total 0.5 mg/dL Normal 0.2-1.2 [facility] ([place] Comment on above: Performed By: #### C BC, ADIFF, ANEU, A1C, GFR, TSH, CMP #### [address] [address] Creatinine [Mass/Vol] 0.66 mg/dL Normal 0.60-1.40 [facility] ([place] Comment on above: Performed By: #### C BC, ADIFF, ANEU, A1C, GFR, TSH, CMP #### [address] [address] Globulin (S) [Mass/Vol] 3.0 G/dL Normal 1.5-3.8 [facility] ([place] Comment on above: Performed By: #### C BC, ADIFF, ANEU, A1C, GFR, TSH, CMP #### [place] [phone] Glucose [Mass/Vol] 91 mg/dL Normal 70-110 [facility] ([place] Comment on above: Performed By: #### C BC, ADIFF, ANEU, A1C, GFR, TSH, CMP #### [address] [address] Protein [Mass/Vol] 7.2 G/dL Normal 6.0-8.5 [facility] ([place] Comment on above: Performed By: #### C BC, ADIFF, ANEU, A1C, GFR, TSH, CMP #### [address] [address] Urea nitrogen/Creatinine [Mass ratio] 12.1 ratio Normal 10.0-22.0 [facility] ([place] Comment on above: Performed By: #### C BC, ADIFF, ANEU, A1C, GFR, TSH, CMP #### [address] [address] Albumin [Mass/Vol] 4.2 G/dL Normal 3.2-4.8 [facility] ([place] Comment on above: Performed By: #### C BC, ADIFF, ANEU, A1C, GFR, TSH, CMP #### [address] [address] AST [Catalytic activity/Vol] 18 U/L Normal 8-34 [facility] ([place] Comment on above: Performed By: #### C BC, ADIFF, ANEU, A1C, GFR, TSH, CMP #### [address] [address] Calcium [Mass/Vol] 9.2 mg/dL Normal 8.4-10.1 [facility] ([place] Comment on above: Performed By: #### C BC, ADIFF, ANEU, A1C, GFR, TSH, CMP #### [address] [address] Chloride [Moles/Vol] 102 mmol/L Normal 98-110 [facility] ([place] Comment on above: Performed By: #### C BC, ADIFF, ANEU, A1C, GFR, TSH, CMP #### [address] [address] CO2 [Moles/Vol] 29 mmol/L Normal 22-32 [facility] [place] Comment on above: Performed By: #### C BC, ADIFF, ANEU, A1C, GFR, TSH, CMP #### [address] [address] Electrolyte Balance 6.0 mEq/L Normal 4.0-15.0 [facility] ([place] Comment on above: Performed By: #### C BC, ADIFF, ANEU, A1C, GFR, TSH, CMP #### [place] [phone] Potassium [Moles/Vol] 4.4 mmol/L Normal 3.5-5.0 [facility] ([place] Comment on above: Performed By: #### C BC, ADIFF, ANEU, A1C, GFR, TSH, CMP #### [place] [phone] Sodium [Moles/Vol] 137 mmol/L Normal 136-145 [facility] ([place] Comment on above: Performed By: #### C BC, ADIFF, ANEU, A1C, GFR, TSH, CMP #### [place] [address] Urea nitrogen [Mass/Vol] 8.0 mg/dL Normal 8.0-22.0 [facility] ([place] Comment on above: Performed By: #### C BC, ADIFF, ANEU, A1C, GFR, TSH, CMP #### [address] [address] LIPIDon 06-03-2019 Cholesterol in HDL [Mass/Vol] 44 mg/dL Normal 40-59 [facility] [place] Comment on above: Result Comment: HDL Reference Interval: Less than 40 Low - high risk 60 or above Optimal/lowers risk Performed By: #### C BC, ADIFF, ANEU, A1C, GFR, TSH, CMP #### [place] [phone] Cholesterol in LDL [Mass/Vol] 83 mg/dL Normal 0-129 [facility] ([place] Comment on above: Result Comment: LDL is a calculated result and requires a 12-hr fast. LDL Reference Interval: Less than 100 Optimal 100-129 Near or above optimal 130-159 Borderline high risk 160-189 High risk 190 and above Very high risk Performed By: #### C BC, ADIFF, ANEU, A1C, GFR, TSH, CMP #### [place] [phone] Triglyceride [Mass/Vol] 94 mg/dL Normal 3-149 [facility] ([place] Comment on above: Result Comment: Trig lyceride Reference Interval: Less than 150 Normal 150-199 Borderline high risk 200-499 High risk 500 or higher Very high risk Performed By: #### C BC, ADIFF, ANEU, A1C, GFR, TSH, CMP #### [place] [address] Cholesterol [Mass/Vol] 146 mg/dL Normal 50-199 [facility] ([place] Comment on above: Result Comment: Chol esterol Reference Interval: Less than 200 Desirable 200-239 Borderline high risk 240 and above High risk Performed By: #### C BC, ADIFF, ANEU, A1C, GFR, TSH, CMP #### [place] [address] TSHon 06-03-2019 TSH Qn 1.340 mcIU/mL Normal 0.360-3.740 [facility] ([place]) Comment on above: Performed By: #### C BC, ADIFF, ANEU, A1C, GFR, TSH, CMP #### [place] [phone] .Auto Diffon 02-03-2019 Ammonia (P) [Mass/Vol] 0.60 10 3/mcL Normal 0.09-1.40 [facility] ([place]) Comment on above: Performed By: #### C BC, ADIFF, ANEU, A1C, GFR, TSH, CMP #### [place] [phone] Basophils (Bld) [#/Vol] 0.10 10 3/mcL Normal 0.00-0.27 [facility] ([place] Comment on above: Performed By: #### C BC, ADIFF, ANEU, A1C, GFR, TSH, CMP #### [place] [phone] Basophils/100 WBC (Bld) 1.1 % Normal 0.0-2.5 [facility] ([place]) Comment on above: Performed By: #### C BC, ADIFF, ANEU, A1C, GFR, TSH, CMP #### [address] [address] Eosinophils (Bld) [#/Vol] 0.20 10 3/mcL Normal 0.00-0. 65 [facility] [place] Comment on above: Performed By: #### C BC, ADIFF, ANEU, A1C, GFR, TSH, CMP #### [address] [address] Eosinophils/100 WBC (Bld) 3.3 % Normal 0.0-6.0 [facility] [place] Comment on above: Performed By: #### C BC, ADIFF, ANEU, A1C, GFR, TSH, CMP #### [address] [address] Lymphocytes (Bld) [#/Vol] 1.50 10 3/mcL Normal 0.90-4. 32 [facility] [place] Comment on above: Performed By: #### C BC, ADIFF, ANEU, A1C, GFR, TSH, CMP #### [address] [address] Lymphocytes/100 WBC (Bld) 28.5 % Normal 20.0-40.0 [facility] ([place] Comment on above: Performed By: #### C BC, ADIFF, ANEU, A1C, GFR, TSH, CMP #### [address] [address] Monocytes/100 WBC (Bld) 10.5 % Normal 2.0-13.0 [facility] ([place] Comment on above: Performed By: #### C BC, ADIFF, ANEU, A1C, GFR, TSH, CMP #### [address] [address] Neutrophils/100 WBC (Bld) 56.6 % Normal 50.0-75.0 [facility] ([place] Comment on above: Performed By: #### C BC, ADIFF, ANEU, A1C, GFR, TSH, CMP #### [address] [address] .GFRon 02-03-2019 GFR >60 Normal [facility] ([place] Comment on above: Result Comment: GFR Population [...] ADIFF, ANEU, A1C, GFR, TSH, CMP #### [address] [address] GFR Non- >60 Normal [facility] ([place] Comment on above: Result Comment: GFR Population [...] ADIFF, ANEU, A1C, GFR, TSH, CMP #### [address] [address] .NEUABSon 02-03-2019 Neutrophils (Bld) [#/Vol] 3.10 10 3/mcL Normal 2.25-8. 10 [facility] ([place] Comment on above: Performed By: #### C BC, ADIFF, ANEU, A1C, GFR, TSH, CMP #### [address] [address] A1Con 02-03-2019 HbA1c (Bld) [Mass fraction] 6.6 % High 4.0-6.0 [facility] ([place] Comment on above: Performed By: #### C BC, ADIFF, ANEU, A1C, GFR, TSH, CMP #### [address] [address] CBCon 02-03-2019 Erythrocyte distribution width (RBC) [Ratio] 16.3 % High 11.5-15.5 [facility] ([place] Comment on above: Performed By: #### C BC, ADIFF, ANEU, A1C, GFR, TSH, CMP #### [place] [address] Hematocrit (Bld) [Volume fraction] 49.7 % Normal 40.0-52.0 [facility] ([place] Comment on above: Performed By: #### C BC, ADIFF, ANEU, A1C, GFR, TSH, CMP #### [place] [address] Hemoglobin (Bld) [Mass/Vol] 16.6 G/dL Normal 13.0-17.5 [facility] ([place] Comment on above: Performed By: #### C BC, ADIFF, ANEU, A1C, GFR, TSH, CMP #### [place] [address] MCH (RBC) [Entitic mass] 30.2 pg Normal 27.0-33.0 [facility] ([place] Comment on above: Performed By: #### C BC, ADIFF, ANEU, A1C, GFR, TSH, CMP #### [place] [phone] MCHC (RBC) [Mass/Vol] 33.4 G/dL Normal 32.0-36.0 [facility] ([place] Comment on above: Performed By: #### C BC, ADIFF, ANEU, A1C, GFR, TSH, CMP #### [place] [phone] MCV (RBC) [Entitic vol] 90.4 fL Normal 81.0-100.0 [facility] ([place]) Comment on above: Performed By: #### C BC, ADIFF, ANEU, A1C, GFR, TSH, CMP #### [place] [phone] Platelet mean volume (Bld) [Entitic vol] 8.3 fL Normal 6.4-10.5 [facility] ([place] Comment on above: Performed By: #### C BC, ADIFF, ANEU, A1C, GFR, TSH, CMP #### [place] [phone] Platelets (Bld) [#/Vol] 311 10 3/mcL Normal 150-450 [facility] ([place] Comment on above: Performed By: #### C BC, ADIFF, ANEU, A1C, GFR, TSH, CMP #### [place] [address] RBC (Bld) [#/Vol] 5.50 10 6/mcL Normal 4.50-6.00 [facility] ([place] Comment on above: Performed By: #### C BC, ADIFF, ANEU, A1C, GFR, TSH, CMP #### [place] [address] WBC (Bld) [#/Vol] 5.40 10 3/mcL Normal 4.50-10.80 [facility] ([place] Comment on above: Performed By: #### C BC, ADIFF, ANEU, A1C, GFR, TSH, CMP #### [place] [address] CMPon 02-03-2019 Albumin/Globulin [Mass ratio] 1.3 {ratio} Normal 0.9-1.6 [facility] ([place] Comment on above: Performed By: #### C BC, ADIFF, ANEU, A1C, GFR, TSH, CMP #### [place] [address] ALP [Catalytic activity/Vol] 94 U/L Normal 38-126 [facility] ([place] Comment on above: Performed By: #### C BC, ADIFF, ANEU, A1C, GFR, TSH, CMP #### [place] [address] Bili Total 0.6 mg/dL Normal 0.2-1.2 [facility] [place] Comment on above: Performed By: #### C BC, ADIFF, ANEU, A1C, GFR, TSH, CMP #### [address] [address] Globulin (S) [Mass/Vol] 3.0 G/dL Normal 1.5-3.8 [facility] ([place] Comment on above: Performed By: #### C BC, ADIFF, ANEU, A1C, GFR, TSH, CMP #### [address] [address] Protein [Mass/Vol] 6.9 G/dL Normal 6.0-8.5 [facility] ([place] Comment on above: Performed By: #### C BC, ADIFF, ANEU, A1C, GFR, TSH, CMP #### [address] [address] Albumin [Mass/Vol] 3.9 G/dL Normal 3.2-4.8 [facility] ([place] Comment on above: Performed By: #### C BC, ADIFF, ANEU, A1C, GFR, TSH, CMP #### [address] [address] ALT [Catalytic activity/Vol] 25 U/L Normal 12-55 [facility] ([place] Comment on above: Performed By: #### C BC, ADIFF, ANEU, A1C, GFR, TSH, CMP #### [address] [address] AST [Catalytic activity/Vol] 23 U/L Normal 8-34 [facility] ([place] Comment on above: Performed By: #### C BC, ADIFF, ANEU, A1C, GFR, TSH, CMP #### [address] [address] Calcium [Mass/Vol] 8.5 mg/dL Normal 8.4-10.1 [facility] ([place] Comment on above: Performed By: #### C BC, ADIFF, ANEU, A1C, GFR, TSH, CMP #### [address] [address] Chloride [Moles/Vol] 101 mmol/L Normal 98-110 [facility] ([place] Comment on above: Performed By: #### C BC, ADIFF, ANEU, A1C, GFR, TSH, CMP #### [address] [address] CO2 [Moles/Vol] 30 mmol/L Normal 22-32 [facility] [place] Comment on above: Performed By: #### C BC, ADIFF, ANEU, A1C, GFR, TSH, CMP #### [address] [address] Creatinine [Mass/Vol] 0.65 mg/dL Normal 0.60-1.40 [facility] ([place] Comment on above: Performed By: #### C BC, ADIFF, ANEU, A1C, GFR, TSH, CMP #### [address] [address] Electrolyte Balance 6.0 mEq/L Normal 4.0-15.0 [facility] ([place] Comment on above: Performed By: #### C BC, ADIFF, ANEU, A1C, GFR, TSH, CMP #### [address] [address] Glucose [Mass/Vol] 91 mg/dL Normal 70-110 [facility] ([place] Comment on above: Performed By: #### C BC, ADIFF, ANEU, A1C, GFR, TSH, CMP #### [address] [address] Potassium [Moles/Vol] 4.4 mmol/L Normal 3.5-5.0 [facility] ([place] Comment on above: Performed By: #### C BC, ADIFF, ANEU, A1C, GFR, TSH, CMP #### [address] [address] Sodium [Moles/Vol] 137 mmol/L Normal 136-145 [facility] ([place] Comment on above: Performed By: #### C BC, ADIFF, ANEU, A1C, GFR, TSH, CMP #### [address] [address] Urea nitrogen [Mass/Vol] 4.0 mg/dL Low 8.0-22.0 [facility] ([place] Comment on above: Performed By: #### C BC, ADIFF, ANEU, A1C, GFR, TSH, CMP #### [address] [address] Urea nitrogen/Creatinine [Mass ratio] 6.2 ratio Low 10.0-22.0 [facility] ([place] Comment on above: Performed By: #### C BC, ADIFF, ANEU, A1C, GFR, TSH, CMP #### [address] [address] LIPIDon 02-03-2019 Cholesterol [Mass/Vol] 150 mg/dL Normal 50-199 [facility] ([place] Comment on above: Result Comment: Chol esterol Reference Interval: Less than 200 Desirable 200-239 Borderline high risk 240 and above High risk Performed By: #### C BC, ADIFF, ANEU, A1C, GFR, TSH, CMP #### [address] [address] Cholesterol in HDL [Mass/Vol] 38 mg/dL Low 40-59 [facility] ([place] Comment on above: Result Comment: HDL Reference Interval: Less than 40 Low - high risk 60 or above Optimal/lowers risk Performed By: #### C BC, ADIFF, ANEU, A1C, GFR, TSH, CMP #### [address] [address] Cholesterol in LDL [Mass/Vol] 83 mg/dL Normal 0-129 [facility] ([place] Comment on above: Result Comment: LDL is a calculated result and requires a 12-hr fast. LDL Reference Interval: Less than 100 Optimal 100-129 Near or above optimal 130-159 Borderline high risk 160-189 High risk 190 and above Very high risk Performed By: #### C BC, ADIFF, ANEU, A1C, GFR, TSH, CMP #### [address] [address] Triglyceride [Mass/Vol] 146 mg/dL Normal 3-149 [facility] ([place] Comment on above: Result Comment: Trig lyceride Reference Interval: Less than 150 Normal 150-199 Borderline high risk 200-499 High risk 500 or higher Very high risk Performed By: #### C BC, ADIFF, ANEU, A1C, GFR, TSH, CMP #### [address] [address] TSHon 02-03-2019 TSH Qn 2.150 mcIU/mL Normal 0.360-3.740 [facility] ([place]) Comment on above: Result Comment: Pankaj burns note as of 02/08/17 new pediatric reference intervals were added for this test. Performed By: #### C BC, ADIFF, ANEU, A1C, GFR, TSH, CMP #### [address] [address] .GFRon 11-04-2018 GFR Non- >60 Normal [facility] ([place]) Comment on above: Result Comment: GFR Population [...] #### B MP, GFR, LIPID, A1C #### [place] [address] GFR >60 Normal [facility] ([place]) Comment on above: Result Comment: GFR Population [...] #### B MP, GFR, LIPID, A1C #### [address] [address] A1Con 11-04-2018 HbA1c (Bld) [Mass fraction] 6.9 % High 4.0-6.0 [facility] ([place]) Comment on above: Performed By: #### C BC, ADIFF, ANEU, A1C, GFR, TSH, CMP #### [address] [address] BMPon 11-04-2018 Creatinine [Mass/Vol] 0.70 mg/dL Normal 0.60-1.40 [facility] ([place]) Comment on above: Performed By: #### B MP, GFR, LIPID, A1C #### [address] [address] Urea nitrogen/Creatinine [Mass ratio] 12.9 ratio Normal 10.0-22.0 [facility] ([place] Comment on above: Performed By: #### B MP, GFR, LIPID, A1C #### [address] [address] Calcium [Mass/Vol] 9.1 mg/dL Normal 8.4-10.1 [facility] ([place] Comment on above: Performed By: #### B MP, GFR, LIPID, A1C #### [address] [address] Chloride [Moles/Vol] 99 mmol/L Normal 98-110 [facility] ([place] Comment on above: Performed By: #### B MP, GFR, LIPID, A1C #### [address] [address] CO2 [Moles/Vol] 28 mmol/L Normal 22-32 [facility] ([place] Comment on above: Performed By: #### B MP, GFR, LIPID, A1C #### [address] [address] Electrolyte Balance 9.0 mEq/L Normal 4.0-15.0 [facility] ([place]) Comment on above: Performed By: #### B MP, GFR, LIPID, A1C #### [address] [address] Glucose [Mass/Vol] 117 mg/dL High 70-110 [facility] ([place] Comment on above: Performed By: #### B MP, GFR, LIPID, A1C #### [address] [address] Potassium [Moles/Vol] 4.3 mmol/L Normal 3.5-5.0 [facility] ([place] Comment on above: Performed By: #### B MP, GFR, LIPID, A1C #### [address] [address] Sodium [Moles/Vol] 136 mmol/L Normal 136-145 [facility] [place] Comment on above: Performed By: #### B MP, GFR, LIPID, A1C #### [address] [address] Urea nitrogen [Mass/Vol] 9.0 mg/dL Normal 8.0-22.0 [facility] ([place] Comment on above: Performed By: #### B MP, GFR, LIPID, A1C #### [address] [address] LIPIDon 11-04-2018 Cholesterol in HDL [Mass/Vol] 43 mg/dL Normal 40-59 [facility] ([place] Comment on above: Result Comment: HDL Reference Interval: Less than 40 Low - high risk 60 or above Optimal/lowers risk Performed By: #### B MP, GFR, LIPID, A1C #### [address] [address] Cholesterol in LDL [Mass/Vol] 78 mg/dL Normal 0-129 [facility] ([place] Comment on above: Result Comment: LDL is a calculated result and requires a 12-hr fast. LDL Reference Interval: Less than 100 Optimal 100-129 Near or above optimal 130-159 Borderline high risk 160-189 High risk 190 and above Very high risk Performed By: #### B MP, GFR, LIPID, A1C #### [address] [address] Cholesterol [Mass/Vol] 145 mg/dL Normal 50-199 [facility] ([place] Comment on above: Result Comment: Chol esterol Reference Interval: Less than 200 Desirable 200-239 Borderline high risk 240 and above High risk Performed By: #### B MP, GFR, LIPID, A1C #### [place] [address] Triglyceride [Mass/Vol] 120 mg/dL Normal 3-149 [facility] ([place] Comment on above: Result Comment: Trig lyceride Reference Interval: Less than 150 Normal 150-199 Borderline high risk 200-499 High risk 500 or higher Very high risk Performed By: #### B MP, GFR, LIPID, A1C #### [place] [address] MALBRon 11-04-2018 U Creatinine 48.6 mg/dL Normal [facility] ([place] Comment on above: Performed By: #### C BC, ADIFF, ANEU, A1C, GFR, TSH, CMP #### [place] [address] U Microalb 585 mcg/dL Normal [facility] ([place] Comment on above: Performed By: #### C BC, ADIFF, ANEU, A1C, GFR, TSH, CMP #### [place] [address] U Ratio Alb/Cre 12.0 mcg/mg Normal 0.0-16.9 [facility] ([place] Comment on above: Performed By: #### C BC, ADIFF, ANEU, A1C, GFR, TSH, CMP #### [place] [address] .Auto Diffon 08-03-2018 Ammonia (P) [Mass/Vol] 0.80 10 3/mcL Normal 0.09-1.40 [facility] [place] Comment on above: Performed By: #### C BC, ADIFF, ANEU, A1C, GFR, TSH, CMP #### [place] [id number] Basophils (Bld) [#/Vol] 0.10 10 3/mcL Normal 0.00-0.27 [facility] [place] Comment on above: Performed By: #### C BC, ADIFF, ANEU, A1C, GFR, TSH, CMP #### [address] [address] Basophils/100 WBC (Bld) 0.7 % Normal 0.0-2.5 A [facility] ([place] Comment on above: Performed By: #### C BC, ADIFF, ANEU, A1C, GFR, TSH, CMP #### [address] [address] Eosinophils (Bld) [#/Vol] 0.10 10 3/mcL Normal 0.00-0. 65 [facility] [place] Comment on above: Performed By: #### C BC, ADIFF, ANEU, A1C, GFR, TSH, CMP #### [address] [address] Eosinophils/100 WBC (Bld) 1.6 % Normal 0.0-6.0 [facility] [place] Comment on above: Performed By: #### C BC, ADIFF, ANEU, A1C, GFR, TSH, CMP #### [address] [address] Lymphocytes (Bld) [#/Vol] 2.20 10 3/mcL Normal 0.90-4. 32 [facility] ([place] Comment on above: Performed By: #### C BC, ADIFF, ANEU, A1C, GFR, TSH, CMP #### [address] [address] Lymphocytes/100 WBC (Bld) 27.8 % Normal 20.0-40.0 [facility] ([place] Comment on above: Performed By: #### C BC, ADIFF, ANEU, A1C, GFR, TSH, CMP #### [address] [address] Monocytes/100 WBC (Bld) 9.9 % Normal 2.0-13.0 A [facility] ([place] Comment on above: Performed By: #### C BC, ADIFF, ANEU, A1C, GFR, TSH, CMP #### [address] [address] Neutrophils/100 WBC (Bld) 60.0 % Normal 50.0-75.0 [facility] [place] Comment on above: Performed By: #### C BC, ADIFF, ANEU, A1C, GFR, TSH, CMP #### [address] [address] .GFRon 08-03-2018 GFR Non- >60 Normal [facility] [place] Comment on above: Result Comment: GFR Population [...] ADIFF, ANEU, A1C, GFR, TSH, CMP #### [address] [address] GFR >60 Normal [facility] [place] Comment on above: Result Comment: GFR Population [...] ADIFF, ANEU, A1C, GFR, TSH, CMP #### [address] [address] .NEUABSon 08-03-2018 Neutrophils (Bld) [#/Vol] 4.80 10 3/mcL Normal 2.25-8. 10 [facility] ([place] Comment on above: Performed By: #### C BC, ADIFF, ANEU, A1C, GFR, TSH, CMP #### [address] [address] A1Con 08-03-2018 HbA1c (Bld) [Mass fraction] 8.0 % High 4.0-6.0 [facility] ([place] Comment on above: Performed By: #### C BC, ADIFF, ANEU, A1C, GFR, TSH, CMP #### [address] [address] CBCon 08-03-2018 Erythrocyte distribution width (RBC) [Ratio] 13.4 % Normal 11.5-15.5 [facility] ([place] Comment on above: Performed By: #### C BC, ADIFF, ANEU, A1C, GFR, TSH, CMP #### [place] [address] Hematocrit (Bld) [Volume fraction] 49.8 % Normal 40.0-52.0 [facility] [place] Comment on above: Performed By: #### C BC, ADIFF, ANEU, A1C, GFR, TSH, CMP #### [place] [address] Hemoglobin (Bld) [Mass/Vol] 16.9 G/dL Normal 13.0-17.5 [facility] [place] Comment on above: Performed By: #### C BC, ADIFF, ANEU, A1C, GFR, TSH, CMP #### [place] [address] MCH (RBC) [Entitic mass] 31.5 pg Normal 27.0-33.0 [facility] [place] Comment on above: Performed By: #### C BC, ADIFF, ANEU, A1C, GFR, TSH, CMP #### [place] [id number] MCHC (RBC) [Mass/Vol] 33.9 G/dL Normal 32.0-36.0 [facility] ([place] Comment on above: Performed By: #### C BC, ADIFF, ANEU, A1C, GFR, TSH, CMP #### [address] [address] MCV (RBC) [Entitic vol] 92.9 fL Normal 81.0-100.0 A [facility] ([place] Comment on above: Performed By: #### C BC, ADIFF, ANEU, A1C, GFR, TSH, CMP #### [address] [address] Platelet mean volume (Bld) [Entitic vol] 8.7 fL Normal 6.4-10.5 [facility] ([place] Comment on above: Performed By: #### C BC, ADIFF, ANEU, A1C, GFR, TSH, CMP #### [address] [address] Platelets (Bld) [#/Vol] 337 10 3/mcL Normal 150-450 [facility] ([place] Comment on above: Performed By: #### C BC, ADIFF, ANEU, A1C, GFR, TSH, CMP #### [address] [address] RBC (Bld) [#/Vol] 5.36 10 6/mcL Normal 4.50-6.00 [facility] ([place] Comment on above: Performed By: #### C BC, ADIFF, ANEU, A1C, GFR, TSH, CMP #### [address] [address] WBC (Bld) [#/Vol] 8.00 10 3/mcL Normal 4.50-10.80 [facility] ([place] Comment on above: Performed By: #### C BC, ADIFF, ANEU, A1C, GFR, TSH, CMP #### [address] [address] CMPon 08-03-2018 Albumin/Globulin [Mass ratio] 1.3 {ratio} Normal 0.9-1.6 [facility] ([place] Comment on above: Performed By: #### C BC, ADIFF, ANEU, A1C, GFR, TSH, CMP #### [address] [address] ALP [Catalytic activity/Vol] 97 U/L Normal 38-126 [facility] ([place] Comment on above: Performed By: #### C BC, ADIFF, ANEU, A1C, GFR, TSH, CMP #### [address] [address] Bili Total 0.7 mg/dL Normal 0.2-1.2 [facility] [place] Comment on above: Performed By: #### C BC, ADIFF, ANEU, A1C, GFR, TSH, CMP #### [address] [address] Globulin (S) [Mass/Vol] 3.3 G/dL Normal 1.5-3.8 [facility] ([place]) Comment on above: Performed By: #### C BC, ADIFF, ANEU, A1C, GFR, TSH, CMP #### [place] [id number] Protein [Mass/Vol] 7.7 G/dL Normal 6.0-8.5 [facility] ([place] Comment on above: Performed By: #### C BC, ADIFF, ANEU, A1C, GFR, TSH, CMP #### [place] [address] Albumin [Mass/Vol] 4.4 G/dL Normal 3.2-4.8 [facility] [place] Comment on above: Performed By: #### C BC, ADIFF, ANEU, A1C, GFR, TSH, CMP #### [place] [id number] ALT [Catalytic activity/Vol] 24 U/L Normal 12-55 [facility] ([place] Comment on above: Performed By: #### C BC, ADIFF, ANEU, A1C, GFR, TSH, CMP #### [address] [address] AST [Catalytic activity/Vol] 12 U/L Normal 8-34 [facility] ([place] Comment on above: Performed By: #### C BC, ADIFF, ANEU, A1C, GFR, TSH, CMP #### [address] [address] Calcium [Mass/Vol] 9.1 mg/dL Normal 8.4-10.1 [facility] [place] Comment on above: Performed By: #### C BC, ADIFF, ANEU, A1C, GFR, TSH, CMP #### [address] [address] Chloride [Moles/Vol] 103 mmol/L Normal 98-110 [facility] ([place] Comment on above: Performed By: #### C BC, ADIFF, ANEU, A1C, GFR, TSH, CMP #### [address] [address] CO2 [Moles/Vol] 25 mmol/L Normal 22-32 [facility] [place] Comment on above: Performed By: #### C BC, ADIFF, ANEU, A1C, GFR, TSH, CMP #### [address] [address] Creatinine [Mass/Vol] 0.77 mg/dL Normal 0.60-1.40 [facility] ([place] Comment on above: Performed By: #### C BC, ADIFF, ANEU, A1C, GFR, TSH, CMP #### [place] [address] Electrolyte Balance 14.0 mEq/L Normal 4.0-15.0 [facility] ([place] Comment on above: Performed By: #### C BC, ADIFF, ANEU, A1C, GFR, TSH, CMP #### [address] [address] Glucose [Mass/Vol] 137 mg/dL High 70-110 [facility] [place] Comment on above: Performed By: #### C BC, ADIFF, ANEU, A1C, GFR, TSH, CMP #### [place] [id number] Potassium [Moles/Vol] 4.4 mmol/L Normal 3.5-5.0 [facility] ([place] Comment on above: Performed By: #### C BC, ADIFF, ANEU, A1C, GFR, TSH, CMP #### [address] [address] Sodium [Moles/Vol] 142 mmol/L Normal 136-145 [facility] [place] Comment on above: Performed By: #### C BC, ADIFF, ANEU, A1C, GFR, TSH, CMP #### [address] [address] Urea nitrogen [Mass/Vol] 6.0 mg/dL Low 8.0-22.0 [facility] ([place] Comment on above: Performed By: #### C BC, ADIFF, ANEU, A1C, GFR, TSH, CMP #### [address] [address] Urea nitrogen/Creatinine [Mass ratio] 7.8 ratio Low 10.0-22.0 [facility] ([place] Comment on above: Performed By: #### C BC, ADIFF, ANEU, A1C, GFR, TSH, CMP #### [address] [address] TSHon 08-03-2018 TSH Qn 1.200 mcIU/mL Normal 0.360-3.740 [facility] ([place] Comment on above: Result Comment: Pankaj burns note as of 02/08/17 new pediatric reference intervals were added for this test. Performed By: #### C BC, ADIFF, ANEU, A1C, GFR, TSH, CMP #### [address] [address] Vital Signs Date Time Vital Sign Value Performing Clinician Fariha prieot 03-23-2025 14:00-0400 Diastolic blood pressure 95 mm[Hg] Sabrina Su [employer] Work Phone: [facility] 03-23-2025 14:00-0400 Heart rate 65 /min Sabrina Su [employer] Work Phone: [facility] 03-23-2025 14:00-0400 Respiratory rate 18 /min Sabrina Su [employer] Work Phone: [facility] 03-23-2025 14:00-0400 SaO2% (BldA) [Mass fraction] 97 % Sabrina Su [employer] Work Phone: [facility] 03-23-2025 14:00-0400 Systolic blood pressure 137 mm[Hg] Sabrina Su [employer] Work Phone: [facility] 03-22-2025 23:16-0400 Body temperature 98 [degF] Sabrina Su [employer] Work Phone: [facility] 03-22-2025 22:08-0400 Body height 177.8 cm Sabrina Su [employer] Work Phone: [facility] 03-22-2025 22:08-0400 Body mass index (BMI) [Ratio] 37.5 kg/m2 Sabrina Su [employer] Work Phone: [facility] 03-22-2025 22:08-0400 Body weight 118.84 kg Sabrina Su [employer] Work Phone: [facility] Encounters Encounter Date Encounter Type Care Provider Facility Start: 06-14-2025 ambulatory [facility] Facility:[facility] Start: 03-22-2025 End: 03-23-2025 Emergency department patient visit Sabrina Su [employer] Work Phone: -Emergency Department Work Phone: Start: 11-09-2024 Encounter for genera l adult medical examination with abnormal findings [facility] Start: 11-03-2024 End: 11-03-2024 ambulatory Sabrina Su [employer] Work Phone: [facility] Work Phone: Start: 11-03-2024 End: 11-03-2024 Patient encounter procedure Sabrina Georges [employer] -Angus Huggins [facility] Start: 11-03-2024 End: 11-03-2024 ambulatory Sabrina Georges Facility:[facility] Start: 03-04-2023 End: 03-04-2023 ambulatory [facility] Work Phone: Start: 03-04-2023 End: 08-08-2023 Patient encounter procedure [facility]Laboratory, Angus Peguero [facility] Procedures Date Procedure Procedure Detail Performing Clinician Start: 03-22-2025 X-ray of chest, PA a nd lateral views Sabrina Su [employer] Work Phone: Start: 03-22-2025 Estimated creatinine clearance Sabrina Su [employer] Work Phone: Plan of Treatment Date Care Activity Detail Author Start: 03-23-2025 [facility] Start: 03-22-2025 [facility] Payers Date Payer Category Payer Self-pay [id number] 2024 Unknown [id number] Unknown ANTHEM [id number] Unknown [id number] Unknown [id number] Unknown [id number] Unknown [id number] Social History Date Type Detail Facility Tobacco smoking stat us NDIS Unknown if ever smoked [facility] Work Phone: Start: 1975 Sex Assigned At Male [facility] Tobacco smoking stat us NDIS Unknown if ever smoked [facility] Work Phone: Start: 11-09-2024 Sex Male (finding) [facility] Start: 03-22-2025 [facility] tobacco daily (finding) [facility] Mental Status Date Assessment Result Facility 03-22-2025 Cognitive function Voice/Name [facility] Work Phone: Discharge summary 03-23-2025 Note Date & Type Note Facility 03-23-2025 Discharge summary [facility] Radiology Diagnostic study note 03-22-2025 Note Date & Type Note Facility 03-22-2025 Radiology Diagnostic study note [facility] Imaging Services [address] [place] [address] Chest PA and Lateral MR#: [id number] Acct: [id number] Name: MARTINEZ MITCHELL Rep #: [id number] : 1975 M 49 From: Topher Griffin MD PCP: AMIRA Diego Status: REG ER Study:Chest PA and Lateral Date of Exam: 03/22/25 Exam# [id number] Ordering Dr: May Sheehan DO PROCEDURE: CHEST PA AND LATERAL 03/22/2025 REASON FOR EXAM: CHEST PAIN TECHNIQUE: CHEST PA AND LATERAL FINDINGS: The heart is normal in size. The lungs are clear. No acute osseous abnormalities. RAD/Chest PA and Lateral IMPRESSION: NO ACUTE FINDINGS. Reading Location: [id number] CC: [employer] Sabrina Su; Dr. Loc Sheehan DO ~ Java Solutions Architect: Signed [facility] Discharge summary 03-22-2025 Note Date & Type Note Facility 03-22-2025 Discharge summary Note Date/Time March 23, 2025 2:03am [facility] Medical Records Department [address] [place] [address] Emergency Department Summary 03/22/25 MR#: [id number] Acct: [id number] Name: MARTINEZ MITCHELL Rep #:[id number] : 1975 49 From: Loc Sheehan DO PCP: AMIRA Diego Status:REG ER Location: ED ADDENDUM by Dr. Alvin Love MD on 03/23/25 at 0203 Patient checked out to me for delta troponin, second troponin measurement was also less than 6, there were 2 negative troponins, patient stable for discharge home with Dr. Sheehan's discharge instructions as above. Discussed with patient he is doing well his pressures down to 133/85 and he has no questions. 03/23/25 0203<Electronically signed by Alvin Love MD> Cosigner Signature (if applicable): cc: AMIRA Su ~* Signed HPI History of Present Illness Chief Complaint: Chest Pain Narrative Narrative: Patient is a 49-year-old male with past medical history of diabetes, hypertension, GERD, hyperlipidemia who presented to the emergency department thechi complaint of chest pain. States that he has had chest pain on and off forabout 2 days now. He states that nothing makes this better or worse. He statesthat if he exerts himself his pain did not worsen. He states that he has not had a stress test or heart cath. He states that he had a burning sensation on the left side of his chest tonight which was different than what he had been experiencing the past 2 days prompting him to come here for further evaluation and management [facility] Medical History Hyperlipemia GERD (gastroesophageal reflux disease) Anxiety Diabetes mellitus Hypertension Allergy/AdvReac Type Severity Reaction Status Date / Time No Known Allergies Allergy Verified 03/22/25 22:09 Social History Smoking Status: Current every day smoker tobacco type: cigarettes ROS ROS ED ROS Narrative Constitutional: Denies any fevers or chills Eyes: Double vision Cardiovascular: Complains of chest pain as noted above denies palpitations Respiratory: Denies shortness of breath Abdomen: Denies nausea vomiting Neurological: Denies numbness, tingling Musculoskeletal: Denies back pain Skin: Denies any rashes or lesions EXAM Physical Exam Narrative Exam Narrative: General: Patient was lying in bed rest comfortably did not appear to be acute distress Head: Atraumatic, normocephalic Eyes: PERRL bilateral, EOMI Black, no conjunctival injection noted Neck: Soft, supple, trachea midline Cardiovascular: Regular rate and rhythm Respiratory: Clear to auscultation bilaterally Abdomen: Soft, nondistended, no tenderness to palpation Extremities: +5/5 strength noted in the bilateral lower extremities, radial pulses +2/4 and about extremities, no pedal edema exam Neurological: Patient follow commands knew that he was at [facility] year is 2024 Skin: Warm, dry, intact no rashes or lesions noted Const Vital Signs: 03/22/25 22:08 03/22/25 22:13 03/22/25 22:16 Temperature 98.7 F Temperature Source Oral Pulse Rate 74 Respiratory Rate 16 Respiratory Effort Normal Non-Labored Respiratory Pattern Normal Blood Pressure 171/101 H Blood Pressure Mean 124 Pulse Ox 100 97 Oxygen Delivery Method Room Air Room Air 03/22/25 23:05 03/22/25 23:16 Temperature 98 F Temperature Source Pulse Rate 69 68 Respiratory Rate 18 18 Respiratory Effort Respiratory Pattern Blood Pressure 130/85 H 128/87 H Blood Pressure Mean 100 100 Pulse Ox 97 97 Oxygen Delivery Method Room Air MDM MDM MDM Narrative Medical decision making narrative: Patient is a 49-year-old male who presented to the emergency department with a chief complaint of chest pain. On the differential diagnosis includes but not into ACS, pneumonia, pneumothorax, GERD, anxiety. Once the workup is obtained reviewed he will be reevaluated. Patient CBC reviewed showed no evidence of cytosis white blood count was noted to be Patient's CBC reviewed showed no evidence leukocytosis white blood count was 7.3, he was 14.6, platelet count of 228. Patient sodium is 135, potassium of 2.7, creatinine normal at 0.72. Patient troponin was less than 6 with delta troponin pending. Patient EKG reviewed which showed sinus rhythm rate of 69 bpm. Patient chest x-ray reviewed by myself by radiology showed no acute findings. On reevaluation patient he is feeling better. Patient was advised that he needsto keep a blood pressure log at home and take this to his doctor for their review to see if they need to make any medication adjustments as he was hypertensive when he arrived here despite taking his medications on a regular basis. He is advised that he should obtain stress testing in the outpatient setting. Patient case signed out to oncoming provider to follow-up on delta troponin and see their note for addendum. Lab Data Labs: Laboratory Results - last 24 hr 03/22/25 22:21 WBC 7.3 RBC 4.48 L Hgb 14.6 Hct 41.0 MCV 91.5 MCH 32.6 H MCHC 35.6 RDW Std Deviation 39.5 RDW Coeff of Arti 11.8 Plt Count 228 MPV 9.4 Immature Gran % (Auto) 0.400 Neut % (Auto) 43.3 L Lymph % (Auto) 43.7 H [place] % (Auto) 9.4 Eos % (Auto) 2.7 Baso % (Auto) 0.5 Absolute Neuts (auto) 3.2 Absolute Lymphs (auto) 3.21 Nucleated RBC % 0 Sodium 135 Potassium 3.7 Chloride 97 L Carbon Dioxide 22.5 Anion Gap 15 BUN 6 Creatinine 0.72 Estim Creat Clear Calc 160.33 Est GFR (MDRD) Non-Af 112 BUN/Creatinine Ratio 7.9 L Glucose 219 H Calcium 9.0 Troponin T High Sens < 6 Radiography Diagnostic Testing: Clinical Impression(s) from Imaging Studies Chest X-Ray 03/22/25 22:43 IMPRESSION: NO ACUTE FINDINGS. Reading Location: [facility] Discharge Plan Triage Chief Complaint: Chest Pain ED Provider: Loc Sheehan Dx/Rx/DC Orders Clinical Impression: Chest pain, History of diabetes mellitus, History of gastroesophageal reflux (GERD), Hypertension Primary Care Provider: Sabrina Su Referrals: Sabrina Su NP-C [Primary Care Provider] - Activity Restrictions/Additional Instructions: Follow-up with your doctor in outpatient setting. Return if worsening symptoms or concerns. Your blood work did not show any acute findings. Take your blood pressure randomly 2-3 times a day write this down and keep a log and take this to your doctor for the review. Print Language: Mongolian What to do if you have Problems For any increased pain, shortness of breath, bleeding, nausea or vomiting, chestpain, or any unexpected problems, contact your Primary Care Provider. Call [facility] ([phone]) or report to the closest Emergency Room. Call 911 if necessary. 03/23/25 0011 <Electronically signed by Loc Sheehan DO> Cosigner Signature (if applicable): CC: AMIRA Su ~ Signed [facility] Work Phone: Evaluation note Note Date & Type Note Facility Evaluation note No assessment information availa ble [facility] Work Phone: Hospital Discharge instructions Note Date & Type Note Facility Hospital Discharge instructions Additional Instructions Follow-up with your doctor in outpatient setting. Return if worsening symptoms or concerns. Your blood work did not show any acute findings. Take your blood pressure randomly 2-3 times a day write this down and keep a log and take this to your doctor for the review. [facility] Work Phone: Reason for referral (narrative) Note Date & Type Note Facility Reason for referral (narrative) No reason for referral information available [facility] Work Phone: Summary Purpose Family History No Family History Records FoundNo Family History Records Found Advance Directives No Advanced Directives Records Found Advance Directive Response Recorded Date/ Time Do you have a Healthcare Power of Disposal Plant Operator? No March 22, 2025 10:13pm Chief Complaint and Reason for Visit Chief Complaint Admit Date chest pain March 22, 2025 10 :05pm Additional Source Comments (unrecognized sect ion and content) No Status Records FoundNo Status Records Found INFORMATION SOURCE (unrecogn ized section and content) DATE CREATED AUTHOR 06/23/2019 [facility] ([place]) DATE CREATED AUTHOR AUTHOR'S ORGANIZ ATION 05/29/2025 [facility] Care Teams (unrecognized sec tion [...] November 03, 2024 End: November 03, 2024 Team Status: Active Member Role/Relationship Status Dates AMIRA Diego Primary Care Provider Active Team Status: Inactive Member Role/Relationship Status Dates AMIRA Diego Primary Care Provider Active Start: March 22, 2025 End: March 23, 2025 Dr. Loc Sheehan , DO Emergency Provider Active Start: March 22, 2025 End: March 23, 2025 Goals (unrecognized section and content) Goals may be documented in a n alternate sectionGoals may be documented in an alternate sectionGoals may be documented in an [...] BE BASED ON THE PRIMARY CLINICAL RECORDS. [facility] provides no warranty or guarantee of the accuracy or completeness of information in this document.
== END | disposition home or self-care (01) ==
LOC: CVS 08:53
PROVIDERS: PCP Nurse Practitioner Family; Referring Provider Nurse Practitioner Family; Visit Provider Nurse Practitioner Family
DX: R07.9 Chest pain, unspecified (principal); Z82.49 Family history of ischemic heart disease and other diseases of the circulatory system
CPT/HCPCS: 93017; 93350; Q9957; A4216; C8928